=== PATIENT | male | born 1955 | race Caucasian/White ===

== ENCOUNTER 2017-06-23 10:00 | Day surgery (SDC) | payer OTHER ==
[~2017-06-23 10:00] MED LIST: Sodium Chloride 0.9% 10 ML Syringe FLUSH PRN
[2017-06-23] MEDS: Lactated Ringers 1,000 ML IV SCH (11:08)
[2017-06-23] MEDS ORDERED: Midazolam 1 MG/ML 2 ML SDV ONE ×4 (11:28→11:35)
[2017-06-23] MEDS ORDERED: Propofol 200 MG/20 ML SDV ONE ×3 (11:28→11:36)
[2017-06-23] MEDS ORDERED: fentaNYL 100 MCG/2 ML SDV ONE ×2 (11:28→11:35)
[2017-06-23] MEDS ORDERED: Lidocaine 2% 5 ML SDV ONE (11:35)
--- NOTE | 2017-06-23 12:16 | PCM.OPNOTE ---
- General Post-Op/Procedure Note Date of Surgery/Procedure: 06/23/17 Operative Procedure(s): EGD with bx. Colonoscopy Findings: Nl EGD Lipoma ; Tics Pre Op Diagnosis: Hx Bal's. FH Colon Ca Post-Op Diagnosis: Same Anesthesia Technique: Moderate Sedation Primary Surgeon: Nagi Garcia Anesthesia Provider: Christi Lo Pathology: Esoph Bx's Complications: None Condition: Good Free Text/Narrative:: Intake & Output 06/22/17 06/23/17 06/23/17 22:59 06:59 14:59 Intake Total 900 Balance 900
--- NOTE | 2017-06-23 14:19 | OR ---
Date of Procedure: 06/23/2017 PREOPERATIVE DIAGNOSES: 1. History of Bal esophagus. 2. Family history of colon cancer. POSTOPERATIVE DIAGNOSES: 1. Normal EGD. 2. Colon lipoma. 3. Sigmoid diverticulosis. PROCEDURES: 1. EGD with biopsy. 2. Colonoscopy. ANESTHESIA: IV sedation. DESCRIPTION OF PROCEDURE: The patient was brought to the procedure room, where he was placed on his left side and IV sedation administered. Oral bite block was placed and the upper endoscope advanced into the esophagus under direct vision without difficulty. Vocal cords were viewed and were normal. Scope was passed to the 3rd portion of the duodenum. Duodenum and pylorus were normal. Antrum and body of the stomach were normal. Retroflexion reveals a normal post lap Irena fundus, which is intact. Squamocolumnar junction was slightly irregular. There was possibly one small erosion present. I did take biopsies of this area in addition to all the other quadrants for surveillance of Bal esophagus. Photographs were taken. Air was removed from the stomach and the scope withdrawn. The patient tolerated this portion of the procedure well. Next, colonoscopy was performed after digital rectal exam was performed which was normal. Colonoscope was inserted and advanced to the level of the cecum without difficulty. Cecal position was confirmed by identifying the appendiceal lumen and ileocecal valve. Prep was good and surfaces were well visualized. Upon withdrawing the scope, the ascending colon was normal. There is a pedunculated lipoma present at the hepatic flexure. I had the old chart pulled and this appeared slightly larger than 7 years ago, but benign mucosal surface present. No treatment was still necessary. Photograph was taken. The remaining transverse colon was normal. Descending colon and sigmoid colon had multiple diverticula present. Rectum was normal and retroflexion was normal. Air was removed and the scope withdrawn. The patient tolerated the procedure well and returned to recovery in stable condition. Recommend repeat EGD and colonoscopy in 5 years. MODL HALEY GAINES MD /[id number]
== END 2017-06-23 13:30 | disposition home or self-care (01) ==
LOC: LL.SDS 10:00
PROVIDERS: ATTEND Surgery
DX: K22.70 Barrett's esophagus without dysplasia (principal); D17.5 Benign lipomatous neoplasm of intra-abdominal organs; K57.30 Diverticulosis of large intestine without perforation or abscess without bleeding; Z80.0 Family history of malignant neoplasm of digestive organs; Z98.890 Other specified postprocedural states
CPT/HCPCS: 43239; 45378; J2250; J2704; J3010; J7120

== ENCOUNTER 2020-01-09 08:56 | Emergency (ER) | payer OTHER ==
[2020-01-09] MEDS ORDERED: Aspirin 81 MG Tab.Chew CHEW ONE (09:10)
[2020-01-09] MEDS ORDERED: Ticagrelor 90 MG Tab PO ONE (09:10)
[2020-01-09] MEDS ORDERED: Famotidine 20 MG/2 ML SDV IVPUSH ONE (09:10)
--- NOTE | 2020-01-09 09:10 | EDM.PDOC ---
ED HPI GENERAL MEDICAL PROBLEM - General Chief Complaint: Chest Pain Stated Complaint: chest pain Time Seen by Provider: 01/09/20 09:05 Source of Information: Reports: Patient, Old Records ([facility] chart/EMR) History Limitations: Reports: No Limitations - History of Present Illness INITIAL COMMENTS - FREE TEXT/NARRATIVE: The patient drove himself to the emergency room via private automobile for evaluation of 11/30 sharp retrosternal chest pain radiating to the right chest, right shoulder and right cervical region with symptoms similar to his previous intermittent daily episodes, which have been occurring about 3 times per day during the last 10 days. Note that patient's symptoms are elicited with mild to moderate activity and associated with possible mild dyspnea, decreased exercise tolerance, and questionable diaphoresis. The patient was evaluated by his regular provider, Mehreen Koenig PA-C, at [facility], [place], operated by [facility], 2 days ago with apparent negative EKG and chest x-ray at that time. Symptoms did resolve prior to my arrival to the emergency room and prior to any treatment given in this facility. His symptoms usually last about 1 hour after onset of his symptoms with the patient taking 600 mg of Advil at 7:30 AM this morning, although his symptoms began about 8:30 AM this morning, while he was working and doing minor lifting this morning. No recent history of abdominal pain, heartburn, nausea, diarrhea, melena, gross hematochezia, or any food intolerance, including fatty foods, etc. with normal bowel movement earlier this morning. He denies any gross hematuria, colic, or other UTI symptoms. The patient also denies any recent fever, cough, wheezing, dyspnea, etc., with apparent negative COVID-19 test a week ago by his history. Onset: Today, Sudden, Gradual, Other (As above) Onset Date: 01/09/20 Onset Time: 08:30 Duration: Intermittent Location: Reports: Neck, Chest, Upper Extremity, Right, Radiates to (As above). Denies: Abdomen, Back, Pelvis, Upper Extremity, Left Quality: Reports: Same as Previous Episode, Sharp, Stabbing Severity: Severe Improves with: Reports: Rest Worsens with: Reports: Other (As above) Context: Reports: Lifting. Denies: Sick Contact, Trauma Associated Symptoms: Reports: Chest Pain, Shortness of Breath. Denies: Confu jose luis, Cough, Diaphoresis, Fever/Chills, Headaches, Loss of Appetite, Malaise, Nausea/Vomiting, Rash, Seizure, Syncope, Weakness Treatments [employer]: Reports: NSAIDS chest pain Pain Score (Numeric/FACES): 0 - Related Data Allergies Allergy/AdvReac Type Severity Reaction Status Date / Time No Known Allergies Allergy Verified 01/09/20 09:05 Home Meds: Home Meds Citalopram [Citalopram HBr] 20 mg PO DAILY 06/22/17 [History] Ibuprofen 600 mg PO TID PRN 02/24/18 [History] Indomethacin [Indocin] 50 mg PO DAILY PRN 02/24/18 [History] Tamsulosin HCl [Flomax] 1 tab PO DAILY 01/09/20 [History] busPIRone [Buspar] 1 tab PO DAILY 01/09/20 [History] Past Medical History HEENT History: Reports: Impaired Vision, Other (See Below). Denies: Allergic Rhinitis, Cataract, Glaucoma, Hard of Hearing, Macular Degeneration, Otitis Media, Retinal Detachment Other HEENT History: He wears glasses. Cardiovascular History: Reports: High Cholesterol, Other (See Below). Denies: Afib, Aneurysm, Arrhythmia, Blood Clots/VTE/DVT, CAD, Heart Failure, Heart Murmur, Hypertension, HI, PVD, Syncope Other Cardiovascular History: Dependent edema. Dyslipidemia. Respiratory History: Reports: Bronchitis, Recurrent, COPD, Pneumonia, Recurrent, Other (See Below). Denies: Asthma, Intubation, Difficult, Intubation, Previous, PE, Pneumothorax, Sleep Apnea, TB Other Respiratory History: COPD by chest x-ray with reactive airway disease secondary to bronchitis. Right middle lobe atelectasis secondary to pneumonia by CT scan on 04/07/2018 as below. Gastrointestinal History: Reports: Chronic Constipation, Fatty Liver, GERD, Hiatal Hernia, Other (See Below). Denies: Bowel Obstruction, Celiac Disease, Cholelithiasis, Chronic Diarrhea, Colon Polyp, Fecal Incontinence, Gastritis, GI Bleed, Hepatitis, Inflammatory Bowel Disease, Irritable Bowel Syndrome, Jaundice, Pancreatitis Other Gastrointestinal History: Bal's esophagus. Colonic lipoma. Genitourinary History: Reports: BPH. Denies: Acute Renal Failure, Chronic Renal Insuffiency, Renal Calculus, Retention, Urinary, STD, Urinary Incontinence, UTI, Recurrent Musculoskeletal History: Reports: Arthritis, Back Pain, Chronic, Fracture, Gout, Neck Pain, Chronic, Osteoarthritis, Other (See Below). Denies: Amputation, Fibromyalgia, Osteoporosis, RA, SLE Other Musculoskeletal History: Right elbow epicondylitis. Bilateral rib fractures in 2002 and 2004. History of gout. Bilateral biceps tendon tears requiring surgery as below. Neurological History: Reports: Headaches, Chronic, Migraines. Denies: Cerebral Aneurysms, Concussion, CVA, Head Trauma, MS, Neuropathy, Peripheral, Parkinson's, Seizure, TIA Psychiatric History: Reports: Anxiety, Depression, Suicidal Ideation, Other (See Below). 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 Endocrine/Metabolic History: Reports: Obesity/BMI 30+, Other (See Below). Denies: Diabetes, Type I, Diabetes, Type II, Diabetes Mellitus, Type 3c, Hypothyroidism, IDDM Other Endocrine/Metabolic History: Hypoalbuminemia. Hematologic History: Reports: None. Denies: Anemia, Blood Transfusion(s), Iron Deficiency Immunologic History: Reports: None. Denies: AIDS, HIV, SLE Oncologic (Cancer) History: Reports: None. Denies: Basal Cell Carcinoma, Colon, Esophageal, Hodgkin's Lymphoma, Leukemia, Lymphoma, Malignant Melanoma, Non- Hodgkin's Lymphoma, Prostate, Squamous Cell Carcinoma Dermatologic History: Reports: None. Denies: Eczema, Psoriasis - Infectious Disease History Infectious Disease History: Reports: Chicken Pox, Measles, Mumps, Rubella. Denies: C-Difficile, Meningitis, Mononucleosis, MRSA, Novel Coronavirus, Pertussis (Whooping Cough), Shingles, TB, VRE - Past Surgical History Head Surgeries/Procedures: Reports: None HEENT Surgical History: Reports: Oral Surgery, Other (See Below). Denies: Adenoidectomy, Cataract Surgery, Eye Surgery, Laser Surgery, Myringotomy w Tube(s), Naso-Sinus Surgery, Tonsillectomy Other HEENT Surgeries/Procedures: [place] teeth extraction 4 in the 1960s. Cardiovascular Surgical History: Reports: None. Denies: Varicose Respiratory Surgical History: Reports: None. Denies: Thoracentesis GI Surgical History: Reports: Colonoscopy, EGD, Irena Fundoplication, Other (See Below). Denies: Appendectomy, Cholecystectomy, Hernia, Abdominal, Hernia, Inguinal, Hernia Repair/Other, Polypectomy Other GI Surgeries/Procedures: Last EGD and colonoscopy on 06/23/17. Irena fundoplication in 2002. Male Surgical History: Reports: Circumcision, Other (See Below). Denies: TURP-Transurethral Resection of Prostate, Vasectomy Other Male Surgeries/Procedures: Circumcision as an . Endocrine Surgical History: Reports: None. Denies: Thyroid Biopsy Neurological Surgical History: Reports: None. Denies: C-Spine, Discectomy, Laminectomy, Lumbar Spine, Sacral Spine, Spinal Fusion, Thoracic Spine, Vertebroplasty Musculoskeletal Surgical History: Reports: None, Other (See Below). Denies: Arthroscopic Procedure, Carpal Tunnel, Ganglion Cyst, Joint Replacement, ORIF, Shoulder Surgery Other Musculoskeletal Surgeries/Procedures:: Left biceps tendon repair in 1996. Right biceps tendon repair in 1977. Oncologic Surgical History: Reports: None Dermatological Surgical History: Reports: None - Past Imaging History Past Imaging History: Reports: CAT Scan (CT scan of the chest with IV contrast on 04/07/2018.) Social & Family History - Family History HEENT: Reports: Macular Degeneration, Other (See Below). Denies: Glaucoma, Retinal Detachment Other HEENT Family History: Mother with macular degeneration Cardiac: Reports: CAD, HI, Stent, Other (See Below). Denies: Afib, Aneurysm, Arrhythmia, Blood Clots/VTE/DVT, Heart Failure, Heart Murmur, High Cholesterol, Hypertension, Syncope (His blood pressure no cholesterol the last time we talked about no rhythm problems aneurysms of the right) Other Cardiac Family History: Father with initial HI in his 50s with multiple PTCA/stents and eventual fatal HI and/or concomitant COPD in his 80s with history of tobacco use. Sister with PTCA/stent x2 at about age 55 with no apparent HI. Sister with pericardial effusion recurrent in nature of unknown etiology. Respiratory: Reports: COPD, Other (See Below). Denies: Asthma, PE, Pneumothorax, Sleep Apnea Other Respiratory Family Hisory: Father with COPD as above. GI: Reports: Colon Polyps, Diverticulosis, Other (See Below). Denies: Celiac Disease, Cholelithiasis, GERD, GI bleed, Inflammatory Bowel Disease, Irritable Bowel Syndrome, PUD Other GI Family History: Mother with history of colonic polyps of unknown type, diverticulosis, and colostomy requirement secondary to postoperative complications from polypectomy. : Reports: None. Denies: Renal Calculus, Renal Disease/Insufficiency OBGYN: Reports: None. Denies: Endometriosis, Recurrent Spontaneous Musculoskeletal: Reports: Arthritis, RA, Other (See Below). Denies: Gout Other Musculoskeletal Family History: Father, brother, nephew with rheumatoid arthritis. Neurological: Reports: None. Denies: Alzheimers Disease, CVA, Dementia, Migraines, MS, Neuropathy, Peripheral, Parkinson's, Seizure, TIA Psychiatric: Reports: Anxiety, Depression, Other (See Below). Denies: Abuse, Victim of, ADD, ADHD, Psych Hospitalization(s), PTSD, Suicide Attempt Other Psychiatric Family History: All family members with some sort of anxiety depression disorder with sister also having alcohol abuse and substance abuse problem Endocrine/Metabolic: Reports: None. Denies: Diabetes, Gestational, Diabetes, Type I, Diabetes, type II, Diabetes Mellitus, Type 3c, Hypothyroidism, IDDM Hematologic: Reports: None. Denies: SLE Immunologic: Reports: None. Denies: AIDS, HIV, SLE Dermatologic: Reports: None. Denies: Eczema, Psoriasis Oncologic: Reports: Colon, Other (See Below). Denies: Esophageal, Hodgkin's Lymphoma, Leukemia, Lymphoma, Non-Hodgkin's Lymphoma, Prostate, Skin Other Oncologic Family History: Father with colon cancer - Tobacco Use Tobacco Use Status *Q: Never Tobacco User Tobacco Use Within Last Twelve Months: No Used Tobacco, but Quit: No Smoking Cessation Information Provided To Patient: No Second Hand Smoke Exposure: No Second Hand Smoke Education Provided: No - Caffeine Use Caffeine Use: Reports: Soda (2 sodas per day). Denies: Coffee, Energy Drinks, Tea - Alcohol Use Alcohol Use History: No Days Per Week of Alcohol Use: 0 Number of Drinks Per Day: 0 Total Drinks Per Week: 0 Total Drinks Per Week Comment: No previous DWIs, problems with alcohol abuse, etc.. Note brief problems with alcohol after his daughter's as above. 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 ED EXAM, GENERAL - Physical Exam Exam: See Below Exam Limited By: No Limitations General Appearance: Alert, WD/WN, No Apparent Distress, Anxious (Mild to moderate) Eye Exam: Bilateral Eye: EOMI, Normal Inspection (No nystagmus), PERRL Ears: Normal External Exam, Normal Canal, Hearing Grossly Normal, Normal TMs Nose: Normal Inspection, Normal Mucosa, No Blood Throat/Mouth: Normal Inspection, Normal Lips, Normal Teeth, Normal Gums, Normal Oropharynx, Normal Voice, No Airway Compromise. No: Dysphagia, Perioral Cyanosis Head: Atraumatic, Normocephalic. No: Facial Swelling, Facial Tenderness, Sinus Tenderness Neck: Normal Inspection, Supple, Non-Tender, Full Range of Motion. No: Carotid Bruit, Lymphadenopathy (L), Lymphadenopathy (R), Thyromegaly Respiratory/Chest: No Respiratory Distress, Lungs Clear, Normal Breath Sounds, No Accessory Muscle Use, Chest Non-Tender. No: Pleural Rub, Retractions Cardiovascular: Normal Peripheral Pulses, No Edema, No Gallop, No JVD, No Murmur, No Rub, Bradycardia (Regular rhythm). No: Gallop/S3, Gallop/S4 Peripheral Pulses: 2+: Radial (L), Radial (R), Dorsalis Pedis (L), Dorsalis Pedis (R) GI/Abdominal: Normal Bowel Sounds, Soft, Non-Tender, No Organomegaly, No Distention, No Abnormal Bruit, No Mass, Pelvis Stable. No: Guarding (Male) Exam: Deferred Rectal (Males) Exam: Deferred Back Exam: Normal Inspection, Full Range of Motion. No: CVA Tenderness (L), CVA Tenderness (R), Muscle Spasm Extremities: Normal Inspection, Normal Range of Motion, Non-Tender, No Pedal Edema, Normal Capillary Refill. No: Scott's Sign Neurological: Alert, Oriented, CN II-XII Intact, Normal Cognition, Normal Gait, Normal Reflexes (Negative Babinski's), No Motor/Sensory Deficits Psychiatric: Anxious (Mild to moderate), Depressed Mood (Borderline) Skin Exam: Warm, Dry, Intact, Normal Color, No Rash. No: Diaphoretic, Wound/In cision Lymphatic: No Adenopathy #1 Interpretation EKG Date: 01/09/20 Time: 09:15 Rhythm: NSR Rate (Beats/Min): 60 [place]: Normal (Neutral cardiac access) P-Wave: Enlarged (Mild diffuse biphasic P waves) QRS: Normal (0.09 seconds) ST-T: Normal QT: Normal CA/PQ Interval: 0.14 seconds with no delta waves noted Comparison: NA - No Prior EKG (No recent EKG for comparison) EKG Interpretation Comments: 1. No acute ischemic changes 2. Left atrial enlargement 3. Borderline short CA interval #2 Interpretation EKG Date: 01/09/20 Time: 15:56 Rhythm: Other (Sinus bradycardia) Rate (Beats/Min): 59 [place]: Normal (Neutral cardiac access) P-Wave: Present QRS: Normal (0.09 seconds) ST-T: Normal (However new borderline T wave inversion in lead III) QT: Normal CA/PQ Interval: 0.14 seconds with no delta waves noted Comparison: Change From Previous EKG (As above since 9:15 AM on 01/09/2020) EKG Interpretation Comments: 1. No acute ischemic changes 2. Sinus bradycardia Course - Vital Signs Last Recorded V/S: Last Vital Signs Temp 36.6 C 01/09/20 19:54 Pulse 65 01/09/20 19:54 Resp 14 01/09/20 19:54 BP 141/107 H 01/09/20 19:54 Pulse Ox 99 01/09/20 19:54 Vital Signs - 24 hr 01/09/20 01/09/20 01/09/20 09:05 09:10 09:23 Temperature [ 36.8 C Temporal] Pulse, 57 L 66 60 Peripheral [ Pulse Oximetry] Respiratory 13 10 L 10 L Rate Blood Pressure 152/85 H 147/81 H 129/78 [Right Upper Arm] O2 Sat by Pulse 99 99 97 Oximetry 01/09/20 01/09/20 01/09/20 09:38 09:53 10:08 Temperature [ Temporal] Pulse, 62 57 L 56 L Peripheral [ Pulse Oximetry] Respiratory 14 10 L 15 Rate Blood Pressure 133/73 146/79 H 149/98 H [Right Upper Arm] O2 Sat by Pulse 98 98 98 Oximetry 01/09/20 01/09/20 01/09/20 10:45 12:00 14:00 Temperature [ 36.4 C 36.4 C Temporal] Pulse, 62 58 L 50 L Peripheral [ Pulse Oximetry] Respiratory 18 15 14 Rate Blood Pressure 194/74 H 149/86 H 157/90 H [Right Upper Arm] O2 Sat by Pulse 99 96 96 Oximetry 01/09/20 01/09/20 16:00 18:00 Temperature [ 36.7 C 36.1 C Temporal] Pulse, 59 L 61 Peripheral [ Pulse Oximetry] Respiratory 17 15 Rate Blood Pressure 155/96 H 148/95 H [Right Upper Arm] O2 Sat by Pulse 94 L 97 Oximetry Vital Signs - 24 hr 01/09/20 01/09/20 01/09/20 09:05 09:10 09:23 Temperature [ 36.8 C Temporal] Pulse, 57 L 66 60 Peripheral [ Pulse Oximetry] Respiratory 13 10 L 10 L Rate Blood Pressure 152/85 H 147/81 H 129/78 [Right Upper Arm] O2 Sat by Pulse 99 99 97 Oximetry 01/09/20 01/09/20 01/09/20 09:38 09:53 10:08 Temperature [ Temporal] Pulse, 62 57 L 56 L Peripheral [ Pulse Oximetry] Respiratory 14 10 L 15 Rate Blood Pressure 133/73 146/79 H 149/98 H [Right Upper Arm] O2 Sat by Pulse 98 98 98 Oximetry 01/09/20 01/09/20 01/09/20 10:45 12:00 14:00 Temperature [ 36.4 C 36.4 C Temporal] Pulse, 62 58 L 50 L Peripheral [ Pulse Oximetry] Respiratory 18 15 14 Rate Blood Pressure 194/74 H 149/86 H 157/90 H [Right Upper Arm] O2 Sat by Pulse 99 96 96 Oximetry 01/09/20 01/09/20 01/09/20 16:00 18:00 19:54 Temperature [ 36.7 C 36.1 C 36.6 C Temporal] Pulse, 59 L 61 65 Peripheral [ Pulse Oximetry] Respiratory 17 15 14 Rate Blood Pressure 155/96 H 148/95 H 141/107 H [Right Upper Arm] O2 Sat by Pulse 94 L 97 99 Oximetry - Orders/Labs/Meds Orders: Active Orders 24 hr Category Date Time Status Cardiac Monitoring [RC] . DIRECTED Care 01/09/20 09:10 Active EKG Documentation Completion [RC] ASDIRECTED Care 01/09/20 09:10 Active EKG Documentation Completion [RC] ASDIRECTED Care 01/09/20 15:37 Active Oxygen Therapy, ED [RC] PRN Care 01/09/20 09:10 Active Peripheral IV Care [RC] . DIRECTED Care 01/09/20 09:10 Active Peripheral IV Care [RC] . DIRECTED Care 01/09/20 10:15 Active Pulse Oximetry [RC] CONTINUOUS Care 01/09/20 09:10 Active Up With Assistance [RC] PFP Care 01/09/20 09:10 Active Vital Signs [RC] PFP Care 01/09/20 09:10 Active Nothing per Oral Now Diet [DIET] Diet 01/09/20 Breakfast Active Chest 1V Frontal [CR] Stat Exams 01/09/20 09:10 Taken Heparin Sodium/0.45% NaCl [Heparin 25,000 Units in 1/2 Med 01/09/20 10:15 Active NS 500 ML] 500 ml IV TITRATE Sodium Chloride 0.9% [Saline Flush] Med 01/09/20 09:10 Active 10 ml FLUSH ASDIRECTED PRN Sodium Chloride 0.9% [Saline Flush] Med 01/09/20 10:15 Active 10 ml FLUSH ASDIRECTED PRN Obtain Past Medical Record [OM.PC] Urgent Oth 01/09/20 09:10 Active Peripheral IV Insertion Adult [OM.PC] Routine Oth 01/09/20 10:15 Ordered Peripheral IV Insertion Adult [OM.PC] Stat Oth 01/09/20 09:10 Ordered Resuscitation Status Stat Resus Stat 01/09/20 09:10 Ordered Medication Orders Heparin Sodium/Sodium Chloride (Heparin 25,000 Units In 1/2 Ns 500 Ml) 500 mls @ 20.36 mls/hr IV TITRATE PEÑA; Protocol Last Admin: 01/09/20 10:54 Dose: 10 units/kg/hr, 20.36 mls/hr Documented by: TALITA Cosigned by: AMINATA Sodium Chloride (Saline Flush) 10 ml FLUSH ASDIRECTED PRN PRN Reason: Keep Vein Open Last Admin: 01/09/20 18:47 Dose: 10 ml Documented by: Admin: 01/09/20 11:37 Dose: 10 ml Documented by: Admin: 01/09/20 11:08 Dose: 10 ml Documented by: Admin: 01/09/20 09:59 Dose: 10 ml Documented by: Admin: 01/09/20 09:16 Dose: 10 ml Documented by: TALITA Sodium Chloride (Saline Flush) 10 ml FLUSH ASDIRECTED PRN PRN Reason: Keep Vein Open Labs: Laboratory Tests 01/09/20 01/09/20 01/09/20 Range/Units 09:14 09:14 09:14 WBC 6.0 (4.0-10.2) K/uL RBC 4.84 (4.33-5.41) M/uL Hgb 13.9 (13.1-16.8) g/dL Hct 43.6 (39.0-49.0) % MCV 90.1 (84.0-98.0) fL MCH 28.7 (28.2-33.3) pg MCHC 31.9 (31.7-36.0) g/dL RDW 15.1 H (11.2-14.1) % Plt Count 153 D (150-350) K/uL Neut % (Auto) 50.9 (45.0-80.0) % Lymph % (Auto) 36.0 (10.0-50.0) % Mckenzie % (Auto) 9.9 (2.0-14.0) % Eos % (Auto) 2.7 (0.0-5.0) % Baso % (Auto) 0.5 (0.0-2.0) % Neut # (Auto) 3.03 (1.40-7.00) K/uL Lymph # (Auto) 2.14 (0.50-3.50) K/uL Mckenzie # (Auto) 0.59 (0.00-1.00) K/uL Eos # (Auto) 0.16 (0.00-0.50) K/uL Baso # (Auto) 0.03 (0.00-0.20) K/uL PT 9.9 (9.5-12.0) SEC INR 1.0 APTT 24.1 L (24.5-32.8) SEC D-Dimer, Quantitative 101 (0-400) ng/mL Sodium (136-145) mmol/L Potassium (3.5-5.1) mmol/L Chloride (98-107) mmol/L Carbon Dioxide (21.0-32.0) mmol/L BUN (7-18) mg/dL Creatinine (0.51-1.17) mg/dL Est Cr Clr Drug Dosing Estimated GFR (MDRD) mL/min Glucose (74-106) mg/dL Lactic Acid (0.4-2.0) mmol/L Uric Acid (2.6-7.2) mg/dL Calcium (8.5-10.1) mg/dL Magnesium (1.8-2.4) mg/dL Total Bilirubin (0.2-1.0) mg/dL AST (15-37) U/L ALT (12-78) U/L Alkaline Phosphatase (46-116) IU/L Creatine Kinase (26-308) U/L Creatine Kinase Index (0.0-2.5) % CK-MB (CK-2) (0.00-3.60) ng/mL Troponin I (0.000-0.056) ng/mL NT-Pro-B Natriuret Pep (0-125) pg/mL Total Protein (6.4-8.2) g/dL Albumin (3.4-5.0) g/dL TSH, Ultra Sensitive (0.358-3.740) mIU/mL 01/09/20 01/09/20 01/09/20 Range/Units 09:14 09:14 16:00 WBC (4.0-10.2) K/uL RBC (4.33-5.41) M/uL Hgb (13.1-16.8) g/dL Hct (39.0-49.0) % MCV (84.0-98.0) fL MCH (28.2-33.3) pg MCHC (31.7-36.0) g/dL RDW (11.2-14.1) % Plt Count (150-350) K/uL Neut % (Auto) (45.0-80.0) % Lymph % (Auto) (10.0-50.0) % Mck[place] % (Auto) (2.0-14.0) % Eos % (Auto) (0.0-5.0) % Baso % (Auto) (0.0-2.0) % Neut # (Auto) (1.40-7.00) K/uL Lymph # (Auto) (0.50-3.50) K/uL Mck[place] # (Auto) (0.00-1.00) K/uL Eos # (Auto) (0.00-0.50) K/uL Baso # (Auto) (0.00-0.20) K/uL PT (9.5-12.0) SEC INR APTT (24.5-32.8) SEC D-Dimer, Quantitative (0-400) ng/mL Sodium 140 (136-145) mmol/L Potassium 3.6 (3.5-5.1) mmol/L Chloride 104 (98-107) mmol/L Carbon Dioxide 25.5 (21.0-32.0) mmol/L BUN 11 (7-18) mg/dL Creatinine 0.86 (0.51-1.17) mg/dL Est Cr Clr Drug Dosing TNP Estimated GFR (MDRD) > 60 mL/min Glucose 139 H (74-106) mg/dL Lactic Acid 2.6 H (0.4-2.0) mmol/L Uric Acid 7.2 (2.6-7.2) mg/dL Calcium 8.7 (8.5-10.1) mg/dL Magnesium 1.6 L (1.8-2.4) mg/dL Total Bilirubin 0.3 (0.2-1.0) mg/dL AST 21 (15-37) U/L ALT 31 (12-78) U/L Alkaline Phosphatase 65 (46-116) IU/L Creatine Kinase 95 101 (26-308) U/L Creatine Kinase Index 2.5 3.3 H (0.0-2.5) % CK-MB (CK-2) 2.40 3.30 (0.00-3.60) ng/mL Troponin I 0.149 H* 0.426 H* (0.000-0.056) ng/mL NT-Pro-B Natriuret Pep 184 H (0-125) pg/mL Total Protein 6.9 (6.4-8.2) g/dL Albumin 3.5 (3.4-5.0) g/dL TSH, Ultra Sensitive 0.868 (0.358-3.740) mIU/mL 01/09/20 01/09/20 01/09/20 Range/Units 16:00 17:35 17:35 WBC (4.0-10.2) K/uL RBC (4.33-5.41) M/uL Hgb (13.1-16.8) g/dL Hct (39.0-49.0) % MCV (84.0-98.0) fL MCH (28.2-33.3) pg MCHC (31.7-36.0) g/dL RDW (11.2-14.1) % Plt Count (150-350) K/uL Neut % (Auto) (45.0-80.0) % Lymph % (Auto) (10.0-50.0) % [place] % (Auto) (2.0-14.0) % Eos % (Auto) (0.0-5.0) % Baso % (Auto) (0.0-2.0) % Neut # (Auto) (1.40-7.00) K/uL Lymph # (Auto) (0.50-3.50) K/uL [place] # (Auto) (0.00-1.00) K/uL Eos # (Auto) (0.00-0.50) K/uL Baso # (Auto) (0.00-0.20) K/uL PT 10.1 (9.5-12.0) SEC INR 1.0 APTT 33.8 H (24.5-32.8) SEC D-Dimer, Quantitative (0-400) ng/mL Sodium (136-145) mmol/L Potassium (3.5-5.1) mmol/L Chloride (98-107) mmol/L Carbon Dioxide (21.0-32.0) mmol/L BUN (7-18) mg/dL Creatinine (0.51-1.17) mg/dL Est Cr Clr Drug Dosing Estimated GFR (MDRD) mL/min Glucose (74-106) mg/dL Lactic Acid 1.7 (0.4-2.0) mmol/L Uric Acid (2.6-7.2) mg/dL Calcium (8.5-10.1) mg/dL Magnesium (1.8-2.4) mg/dL Total Bilirubin (0.2-1.0) mg/dL AST (15-37) U/L ALT (12-78) U/L Alkaline Phosphatase (46-116) IU/L Creatine Kinase (26-308) U/L Creatine Kinase Index (0.0-2.5) % CK-MB (CK-2) (0.00-3.60) ng/mL Troponin I (0.000-0.056) ng/mL NT-Pro-B Natriuret Pep (0-125) pg/mL Total Protein (6.4-8.2) g/dL Albumin (3.4-5.0) g/dL TSH, Ultra Sensitive (0.358-3.740) mIU/mL Meds: Medications Generic Name Dose Route Start Last Admin Trade Name Freq PRN Reason Stop Dose Admin Heparin Sodium/Sodium Chloride 500 mls @ 20.36 mls/hr 01/09/20 10:15 01/09/20 10:54 Heparin 25,000 Units In 02/22 Ns 500 Ml IV 10 units/kg/hr TITRATE PEÑA 20.36 mls/hr Administration Protocol 10 UNITS/KG/HR Sodium Chloride 10 ml 01/09/20 09:10 01/09/20 18:47 Saline Flush FLUSH 10 ml ASDIRECTED PRN Administration Keep Vein Open Sodium Chloride 10 ml 01/09/20 10:15 Saline Flush FLUSH ASDIRECTED PRN Keep Vein Open Discontinued Medications Generic Name Dose Route Start Last Admin Trade Name Freq PRN Reason Stop Dose Admin Aspirin 324 mg 01/09/20 09:10 01/09/20 09:14 Aspirin CHEW 01/09/20 09:11 324 mg ONETIME ONE Administration Famotidine 40 mg 01/09/20 09:10 01/09/20 09:16 Pepcid IVPUSH 01/09/20 09:11 40 mg ONETIME ONE Administration Heparin Sodium (Porcine) 4,000 units 01/09/20 10:13 01/09/20 10:19 Heparin Sodium IVPUSH 01/09/20 10:14 4,000 units ONETIME ONE Administration Heparin Sodium (Porcine) 2,000 units 01/09/20 18:40 01/09/20 18:47 Heparin Sodium IVPUSH 01/09/20 18:41 2,000 units .BOLUS ONE Administration Lactated Ringer's 1,000 mls @ 999 mls/hr 01/09/20 09:47 01/09/20 09:59 Ringers, Lactated IV 01/09/20 10:47 999 mls/hr .BOLUS ONE Administration Magnesium Sulfate 4 gm/ Premix 100 mls @ 50 mls/hr 01/09/20 11:28 01/09/20 11:37 IV 01/09/20 13:27 200 mls/hr ONETIME ONE Administration Ticagrelor 180 mg 01/09/20 09:10 01/09/20 09:16 Brilinta PO 01/09/20 09:11 180 mg ONETIME ONE Administration - Radiology Interpretation Free Text/Narrative:: 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 Chest x-ray, portable, shows mild pulmonary obstructive changes with no cardiomegaly, CHF, pulmonary infiltrates, pneumothorax, etc. Departure - Departure Time of Disposition: 20:25 Disposition: DC/Tfer to Acute Hospital 02 Reason for Transfer *Q: Other (Cardiology consultation) Condition: Good, Fair Clinical Impression: Peptic reflux disease, Dyslipidemia, Hypomagnesemia, Mixed anxiety depressive disorder, Elevated lactic acid level, Elevated blood pressure reading COPD (chronic obstructive pulmonary disease) Qualifiers: COPD type: emphysema Emphysema type: panlobular Qualified Code(s): J43.1 - Panlobular emphysema Osteoarthritis Qualifiers: Osteoarthritis location: multiple joints Osteoarthritis type: primary Qualified Code(s): M89.49 - Other hypertrophic osteoarthropathy, multiple sites Acute myocardial infarction Qualifiers: Myocardial infarction type: non-ST elevation myocardial infarction Qualified Code(s): I21.4 - Non-ST elevation (NSTEMI) myocardial infarction Referrals: Mehreen Koenig PA [Primary Care Provider] - Forms: ED Department Discharge, Interfacility Transfer ARTIS Sepsis Event Note (ED) - Evaluation Sepsis Screening Result: No Definite Risk - Focused Exam Vital Signs: Vital Signs Temp Pulse Resp BP Pulse Ox 01/09/20 19:54 36.6 C 65 14 141/107 H 99 01/09/20 18:00 36.1 C 61 15 148/95 H 97 01/09/20 16:00 36.7 C 59 L 17 155/96 H 94 L 01/09/20 14:00 36.4 C 50 L 14 157/90 H 96 01/09/20 12:00 36.4 C 58 L 15 149/86 H 96 01/09/20 10:45 62 18 194/74 H 99 01/09/20 10:08 56 L 15 149/98 H 98 01/09/20 09:53 57 L 10 L 146/79 H 98 01/09/20 09:38 62 14 133/73 98 01/09/20 09:23 60 10 L 129/78 97 01/09/20 09:10 66 10 L 147/81 H 99 01/09/20 09:05 36.8 C 57 L 13 152/85 H 99 - Problem List & Annotations (1) Acute myocardial infarction SNOMED Code(s): 97862468 Code(s): I21.9 - ACUTE MYOCARDIAL INFARCTION, UNSPECIFIED Status: Acute Priority: High Current Visit: Yes Onset Date: 01/09/20 Annotation/Comment:: Chest pain protocol initiated medially upon patient's arrival to the emergency room. Note positive troponin as above with mild sinus bradycardia but no significant EKG changes. IV sodium heparin was initiated per non-STEMI protocol immediately upon receiving the above test results. Note that follow-up PTT did show a suboptimal therapy with additional 2000 units IV sodium heparin bolus given and his infusion increased to 14 units/kg/h. Recommend repeat PTT shortly after arrival of the patient to the accepting facility. Telephone consultation initially at 10:[address] Frederick, the ER physician at [facility], who did accept the patient for further treatment and evaluation, with no further treatment recommendations given. Unfortunately there was not a bed available in that facility at that time, however they would be able to accept the patient later this afternoon. Long-term emergency room care required with continuation of IV heparin therapy as above. Note additional telephone consultation at 10:25 AM with [facility], with no beds available in that facility until later this evening. The patient did take his morning medications. Multiple subsequent telephone consultations with [facility] with last consultation at 5:25 PM with that facility now stating they do not have a bed available today. Subsequent telephone consultation at 5:[address] Lo, hospitalist and ER physician at [facility] in [place], who does accept the patient for further treatment and evaluation, with no further treatment recommendations given. Secondary to ambulance availability some delay in patient's transfer without sequelae. Ambulance transfer with photoengraving sketch maker accompaniment and IV heparin therapy continued in route. Vital signs and physical exam were stable at time of ambulance transfer with photoengraving sketch maker accompaniment. No chest pain, etc. at time of transfer. In spite of progressive troponin I and now mildly positive CK index serial EKGs did not show any evidence of significant acute ischemia. Qualifiers: Myocardial infarction type: non-ST elevation myocardial infarction Qualifie d Code(s): I21.4 - Non-ST elevation (NSTEMI) myocardial infarction (2) Elevated lactic acid level SNOMED Code(s): 8921348 Code(s): R79.89 - OTHER SPECIFIED ABNORMAL FINDINGS OF BLOOD CHEMISTRY Status: Acute Priority: High Current Visit: Yes Onset Date: 01/09/20 Annotation/Comment:: Mild lactic acid level with no fever, leukocytosis, or evidence of infection, sepsis, etc. 1 L of lactated Ringer's was initiated immediately in the emergency room with repeat lactic acid level prior to patient transfer. Note mild initial BNP elevation with no significant clinical evidence of CHF. IV antibiotic therapy not indicated. Follow-up lactic acid level later this afternoon as per standard sepsis protocol/order set was normal. (3) COPD (chronic obstructive pulmonary disease) SNOMED Code(s): 93512670 Code(s): J44.9 - CHRONIC OBSTRUCTIVE PULMONARY DISEASE, UNSPECIFIED Status: Acute Priority: High Current Visit: Yes Annotation/Comment:: COPD by chest x-ray with no recent fever or bronchitic type symptoms. Note recent negative COVID-19 evaluation about 1 week ago by his history. Patient does have a previous history of right middle lobe atelectasis in March 2018 likely secondary to his previous pneumonia with recommended CT scan at that time. Consider repeat CT scan of the chest with IV contrast depending on his clinical course. Qualifiers: COPD type: emphysema Emphysema type: panlobular Qualified Code(s): J43.1 - Panlobular emphysema (4) Hypomagnesemia SNOMED Code(s): 802523976 Code(s): E83.42 - HYPOMAGNESEMIA Status: Acute Priority: Medium Current Visit: Yes Onset Date: 02/24/18 Annotation/Comment:: Persistent hypomagnesemia with patient not compliant with his previous oral magnesium supplementation. IV magnesium sulfate 4 g given in the emergency room after completion of his lactated Ringer's IV bolus. (5) Mixed anxiety depressive disorder SNOMED Code(s): 619292794 Code(s): F41.8 - OTHER SPECIFIED ANXIETY DISORDERS Status: Acute Priority: High Current Visit: Yes Annotation/Comment:: Moderate control based on today's evaluation with continued grief reaction secondary to his daughter's unfortunate from an MVA about 22 years ago. Emotional support was provided.. Consider medication adjustment by provider and continue to observe closely on an outpatient basis. (6) Dyslipidemia SNOMED Code(s): 594225146 Code(s): E78.5 - HYPERLIPIDEMIA, UNSPECIFIED Status: Chronic Priority: Medium Current Visit: Yes Annotation/Comment:: Weight loss in moderation advisable. Continued close follow-up by his regular providers. (7) Osteoarthritis SNOMED Code(s): 384227817 Code(s): M19.90 - UNSPECIFIED OSTEOARTHRITIS, UNSPECIFIED SITE Status: Chronic Priority: Medium Current Visit: Yes Annotation/Comment:: Stable by history with history of hyperuricemia, however no recent gout attacks. Patient is not on allopurinol, etc. Qualifiers: Osteoarthritis location: multiple joints Osteoarthritis type: primary Qualified Code(s): M89.49 - Other hypertrophic osteoarthropathy, multiple sites (8) Peptic reflux disease SNOMED Code(s): 306379698 Code(s): K21.9 - GASTRO-ESOPHAGEAL REFLUX DISEASE WITHOUT ESOPHAGITIS Status: Chronic Priority: Medium Current Visit: Yes Annotation/Comment:: High-dose IV Pepcid was given as GI prophylaxis in the emergency room. Note history of Bal's esophagitis. Observe for now. (9) Elevated blood pressure reading SNOMED Code(s): 01374756 Code(s): R03.0 - ELEVATED BLOOD-PRESSURE READING, W/O DIAGNOSIS OF HTN Status: Acute Priority: High Current Visit: Yes Onset Date: 01/09/20 Annotation/Comment:: Elevated blood pressure readings in the emergency room, although improved after IV magnesium sulfate was given as above. No previous history of hypertension or medical therapy. Continue to observe closely by accepting and regular providers. - Problem List Review Problem List Initiated/Reviewed/Updated: Yes - My Orders Last 24 Hours: My Active Orders 01/09/20 Breakfast Nothing per Oral Now Diet [DIET] 01/09/20 09:10 Cardiac Monitoring [RC] . DIRECTED EKG Documentation Completion [RC] ASDIRECTED Oxygen Therapy, ED [RC] PRN Peripheral IV Care [RC] . DIRECTED Pulse Oximetry [RC] CONTINUOUS Up With Assistance [RC] PFP Vital Signs [RC] PFP Chest 1V Frontal [CR] Stat Sodium Chloride 0.9% [Saline Flush] 10 ml FLUSH ASDIRECTED PRN Obtain Past Medical Record [OM.PC] Urgent Peripheral IV Insertion Adult [OM.PC] Stat Resuscitation Status Stat 01/09/20 10:15 Peripheral IV Care [RC] . DIRECTED Heparin Sodium/0.45% NaCl [Heparin 25,000 Units in 1/2 NS 500 ML] 500 ml IV TITRATE Sodium Chloride 0.9% [Saline Flush] 10 ml FLUSH ASDIRECTED PRN Peripheral IV Insertion Adult [OM.PC] Routine 01/09/20 15:37 EKG Documentation Completion [RC] ASDIRECTED - Assessment/Plan Last 24 Hours: My Active Orders 01/09/20 Breakfast Nothing per Oral Now Diet [DIET] 01/09/20 09:10 Cardiac Monitoring [RC] . DIRECTED EKG Documentation Completion [RC] ASDIRECTED Oxygen Therapy, ED [RC] PRN Peripheral IV Care [RC] . DIRECTED Pulse Oximetry [RC] CONTINUOUS Up With Assistance [RC] PFP Vital Signs [RC] PFP Chest 1V Frontal [CR] Stat Sodium Chloride 0.9% [Saline Flush] 10 ml FLUSH ASDIRECTED PRN Obtain Past Medical Record [OM.PC] Urgent Peripheral IV Insertion Adult [OM.PC] Stat Resuscitation Status Stat 01/09/20 10:15 Peripheral IV Care [RC] . DIRECTED Heparin Sodium/0.45% NaCl [Heparin 25,000 Units in 1/2 NS 500 ML] 500 ml IV TITRATE Sodium Chloride 0.9% [Saline Flush] 10 ml FLUSH ASDIRECTED PRN Peripheral IV Insertion Adult [OM.PC] Routine 01/09/20 15:37 EKG Documentation Completion [RC] ASDIRECTED Assessment:: As above Plan: As above. Extensive precautions were given to the patient and his , who are in agreement with the treatment plan. Ambulance transfer to [facility] in [place] with photoengraving sketch maker accompaniment as above.
[2020-01-09] MEDS: Sodium Chloride 0.9% 10 ML Syringe FLUSH PRN ×5 (09:16→18:47)
[2020-01-09 09:41] LABS: PTT,PARTIAL THROMBOPLSTIN TIME 24.1 SEC (24.5-32.8)
[2020-01-09] MEDS ORDERED: Lactated Ringers 1,000 ML IV ONE (09:47)
[2020-01-09 10:08] LABS: CHLORIDE,CL 104 mmol/L (98-107); SODIUM,NA 140 mmol/L (136-145)
[2020-01-09] MEDS ORDERED: Heparin Sodium 5,000 Units/ML Vial IVPUSH ONE ×2 (10:13→18:40)
[2020-01-09] MEDS ORDERED: Sodium Chloride 0.9% 10 ML Syringe FLUSH PRN (10:15)
[2020-01-09] MEDS ORDERED: Heparin Sodium/0.45% NaCl 500 ML IV SCH (10:15)
[2020-01-09] MEDS ORDERED: Magnesium Sulfate/Water 4 GM in Premix Bag 1 BAG IV ONE (11:28)
--- OUTSIDE RECORDS SUMMARY | 2020-01-11 12:12 | XMSREPORT ---
:1955 Author Organization [facility] s Address [facility] [place] [address] Care Team Providers Name Role Phone Provider, Attributed RESOURCE Attributed Provider Unavailab daphney Mcconnell MD Primary Care Provider ANTONIO Koenig Primary Care Provider Reason for Visit Reason Comments Auth/Cert Status Reason Specialty Diagnoses / Procedures Referred By Gilma leon Referred To Contact Encounter Details Date Type Department Care Team Description 01/09/2020 - Hospital Encounter [facility] Dionte Lo MD [address] [place] [address] Non-ST elevation [place] 01/[facility] [address] [place] [address] (NSTEMI) ([facility]) [address] [place] [address] Allergies No Known Allergiesdocumented as of this encounter (statuses as of 01/11/2020) Medications Medication Sig Dispensed Refills Start Date End Date Status citalopram (CELEXA) Take 40 mg by 0 Active 40 mg tablet mouth 1 time per day. acetaminophen Take 1,300 mg 0 Ac tive (TYLENOL ARTHRITIS) by mouth as 650 mg tablet needed. tamsulosin (FLOMAX) Take 1 30 capsule 12 03/28/2018 Active 0.4 mg capsule (0.4 capsuleIndications: mg) by mouth Enlarged prostate 1 time per with urinary day obstruction, Lower urinary tract symptoms (LUTS), Screening for prostate cancer busPIRone (BUSPAR) Take 5 mg by 0 01/01/2020 Active 5 mg tablet mouth 1 time per day aspirin 81 mg Take 1 tablet 30 tablet 12 01/11/2020 02/10/20 A ctive chewable (81 mg) by 20 tabletIndications: mouth 1 time Non-ST elevation [place] per day (NSTEMI) ([facility]) atorvaSTATin Take 1 tablet 90 tablet 4 01/11/2020 01/16/20 Ac tive (LIPITOR) 40 mg (40 mg) by 21 tabletIndications: mouth every Non-ST elevation [place] night at (NSTEMI) ([facility]) bedtime metoprolol Take 1 tablet 90 tablet 4 01/11/2020 01/16/20 Acti ve succinate (TOPROL (25 mg) by 21 XL) 25 mg SR tablet mouth 1 time (24 hr)Indications: per day Non-ST elevation [place] (NSTEMI) ([facility]) nitroglycerin Dissolve 1 30 tablet 0 01/11/2020 01/16/20 Acti ve (NITROSTAT) 0.4 mg tablet (0.4 21 sublingual mg) under the tabletIndications: tongue Every Non-ST elevation [place] 5 minutes as (NSTEMI) ([facility]) needed for chest pain May repeat every 5 minutes for a total of 3 doses. ticagrelor Take 1 tablet 60 tablet 11 01/11/2020 Acti ve (BRILINTA) 90 mg (90 mg) by tabletIndications: mouth 2 times Non-ST elevation [place] a day (NSTEMI) ([facility]) Cyanocobalamin Take 1 tablet 0 01/09/20 D iscontinued (VITAMIN B-12 PO) by mouth 1 20 ( die drawing checker time per day. error) colchicine 0.6 mg Take 0.6 mg 0 01/09/20 Discontinued tablet by mouth 1 20 (Data ent ry time per day error) aspirin 81 mg Take 1 tablet 0 05/28/2015 01/11/20 D iscontinued chewable tablet (81 mg total) 20 (Reorder) by mouth 1 time per day indomethacin Take 1 90 capsule 0 12/15/2018 01/11/20 Disco ntinued (INDOCIN) 50 mg capsule (50 20 (S top Taking at capsuleIndications: mg) by mouth Discharge) Acute gout, 3 times a day unspecified cause, with meals unspecified site documented as of this encounter (statuses as of 01/11/2020) Active Problems Problem Noted Date Non-ST elevation [place] (NSTEMI) 01/10/2020 Lower urinary tract symptoms (LUTS) 03/28/2018 Enlarged prostate with urinary obstruction 03/28/2018 Screening for prostate cancer 03/28/2018 Status post arthroscopic knee surgery 08/13/2015 Depression 07/20/2013 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 Overview: Borderline and Narcissistic traits Gout 06/28/2013 documented as of this encounter (statuses as of 01/11/2020) Resolved Problems Problem Noted Date Resolved Date Meniscus tear 05/14/2015 08/13/2015 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 Sex Assigned at Date Recorded Not on file documented as of this encounter Last Filed Vital Signs Vital Sign Reading Time Taken Comments Blood Pressure 132/86 01/11/2020 7:[address] MAGISTRATE Pulse 55 01/11/2020 7:[address] MAGISTRATE Temperature 36.4 C (97.6 F) 01/11/2020 7:[address] MAGISTRATE Respiratory Rate 16 01/11/2020 7:[address] MAGISTRATE Oxygen Saturation 98% 01/11/2020 7:[address] MAGISTRATE Inhaled Oxygen Concentration - - Weight 97.9 kg (215 lb 12.8 oz) 01/10/2020 7:[address] MAGISTRATE Height 175.3 cm (5' 9") 01/09/2020 9:[address] MAGISTRATE Body Mass Index 31.87 01/09/2020 9:[address] MAGISTRATE documented in this encounter Functional Status Functional Status Response Date of Assessment Is the person deaf or does he/she have serious difficulty No 05/27/2015 hearing? Is this person blind or does he/she have difficulty No 05/27/2015 seeing even when wearing glasses? Do you have difficulty with walking, balance, climbing No 01/10/2020 stairs, or had a fall in the last 3 months? Because of a physical, mental, or emotional condition; No 05/27/2015 does this person have difficulty doing errands alone such as visiting a doctor's office or shopping? Cognitive Status Response Date of Assessment Because of a physical, mental, or emotional condition; No 05/27/2015 does this person have serious difficulty concentrating, remembering, or making decisions? documented as of this encounter Discharge Summaries Not on filedocumented in this encounter Discharge Instructions AttachmentsThe following attachments cannot be sent through Care Everywhere. Angina, Discharge Instructions for (Malian)documented in this encounter Medications at Time of Discharge Medication Sig Dispensed Refills Start Date End Date aspirin 81 mg chewable Take 1 tablet (81 30 tablet 12 201902/10/2020 tabletIndications: Non-ST mg) by mouth 1 time elevation [place] (NSTEMI) per day ([facility]) atorvaSTATin (LIPITOR) 40 Take 1 tablet (40 90 tablet 4 01/15/2021 mg tabletIndications: mg) by mouth every Non-ST elevation [place] night at bedtime (NSTEMI) ([facility]) metoprolol succinate Take 1 tablet (25 90 tablet 4 01/11/20 20 01/15/2021 (TOPROL XL) 25 mg SR mg) by mouth 1 time tablet (24 per day hr)Indications: Non-ST elevation [place] (NSTEMI) ([facility]) nitroglycerin (NITROSTAT) Dissolve 1 tablet 30 tablet 0 01/15/2021 0.4 mg sublingual (0.4 mg) under the tabletIndications: Non-ST tongue Every 5 elevation [place] (NSTEMI) minutes as needed ([facility]) for chest pain May repeat every 5 minutes for a total of 3 doses. ticagrelor (BRILINTA) 90 Take 1 tablet (90 60 tablet 11 12/23 mg tabletIndications: mg) by mouth 2 Non-ST elevation [place] times a day (NSTEMI) ([facility]) tamsulosin (FLOMAX) 0.4 Take 1 capsule (0.4 30 capsule 12 06/2018 mg capsuleIndications: mg) by mouth 1 time Enlarged prostate with per day urinary obstruction, Lower urinary tract symptoms (LUTS), Screening for prostate cancer acetaminophen (TYLENOL Take 1,300 mg by 0 ARTHRITIS) 650 mg tablet mouth as needed. citalopram (CELEXA) 40 mg Take 40 mg by mouth 0 tablet 1 time per day. busPIRone (BUSPAR) 5 mg Take 5 mg by mouth 0 12/22 tablet 1 time per day documented as of this encounter Progress Notes Elfego Mcfadden MD - 01/10/2020 10:45 AM CST Hospital Progress Note Erik Snider is a 64yr old male admitted on 01/09/2020. Assessment / Plan Active Problems: Non-ST elevation [place] (NSTEMI) ([facility]) Resolved Problems: * No resolved hospital problems. * Erik is a 64-year-old male with no known CAD, past medical history of obesity with a BMI 32 dyslipidemia family history of heart disease, anxiety depression GERD who came in as a direct admit for concerns for chest pain and elevated troponin. He has been having off-and-on chest pain for almost a week, pain was associated with shortness of breath diaphoresis, for which he went to [facility]- EKG showed no acute ST changes, chest x-ray was negative for any acute process, troponin was0.1 and 0.4. He was given aspirin 324, Brilinta 180 mg, 40 mg IV Pepcid, 4 g magnesium, heparin bolus and heparin drip and was transferred here for further management. #NSTEMI likely type I Risk factorsobesity, family history of CAD, dyslipidemia At [facility] he already loaded with aspirin 324 and Brilinta 180 mg, heparin bolus at outside hospital Continue heparin drip Start aspirin 81 mg Continue Lipitor and beta-blockers as tolerated Telemetry EKG repeated no acute ST changes Echocardiogram pending Troponins trended down. Lipid panel reviewed with LDL 137 and A1c at 5.5 Cardiology consulted : Plan for angiogram today. #Anxiety and depression Resume home dose BuSpar and Celexa #BPH resume Flomax #Obesity CODE STATUS full code DVT prophylaxis on heparin drip HPI / History / ROS HPI - Cardiology evaluated him and the plan for angiogram, continued on heparin drip, echo still pending, no active chest pain right now, vitals are stable, discussed the plan of care with the patient and his in the room. Review of Systems Constitutional: Positive for fatigue. Negative for activity change. Respiratory: Negative for cough and shortness of breath. Cardiovascular: Positive for chest pain. Negative for leg swelling. Gastrointestinal: Negative for abdominal pain and constipation. Genitourinary: Negative. Musculoskeletal: Negative. Skin: Negative. Neurological: Negative. Hematological: Negative. Psychiatric/Behavioral: Negative. Physical / Results Current Vital Signs Temp: 97.9 F (36.6 C) BP: 139/86 Weight: 97.9 kg (215 lb 12.8 oz) SpO2: 97 % Resp: 16 Pulse: 59 Current BMI (>50 = increased risk): (!) 32.15 O2 Device: Room Air Pain Ratin Physical Exam Constitutional: Appearance: He is not ill-appearing. HENT: Nose: No congestion. Eyes: General: No scleral icterus. Neck: Musculoskeletal: No neck rigidity. Cardiovascular: Rate and Rhythm: Normal rate and regular rhythm. Heart sounds: No murmur. Pulmonary: Effort: No respiratory distress. Breath sounds: Normal breath sounds. No wheezing. Abdominal: General: There is no distension. Tenderness: There is no abdominal tenderness. Musculoskeletal: General: No swelling. Skin: Coloration: Skin is not jaundiced. Neurological: General: No focal deficit present. Mental Status: He is oriented to person, place, and time. Mental status is at baseline. Motor: No weakness. Psychiatric: Mood and Affect: Mood normal. T COURT MAGISTRATE documented in this encounter H&P Notes Chani Nicholson MD - 01/09/2020 10:07 PM CST Hospital Admission History and Physical Assessment / Plan Erik is a 64-year-old male with no known CAD, past medical history of obesity with a BMI 32 dyslipidemia family history of heart disease, anxiety depression GERD who came in as a direct admit from medicine floor concerns for chest pain and elevated troponin. He has been having off-and-on chest pain for almost a week, pain was worse today from 8 AM to 11 AM,associated with shortness of breath diaphoresis, for which he went to [facility]- EKG showed no acute ST changes, chest x-ray was negative for any acute process, troponin was0.1 and 0.4. He was given aspirin 324, Brilinta 180 mg, 40 mg IV Pepcid, 4 g magnesium, heparin bolus and heparin drip and was transferred here for further management. #NSTEMI Risk factorsobesity, family history of CAD, dyslipidemia Concurrent aspirin 324 and Brilinta 180 mg, heparin bolus at outside hospital Resume heparin drip Start aspirin 81 mg from tomorrow Add Lipitor and low-dose beta-blockers as tolerated Telemetry EKG repeated no acute ST changes Echocardiogram Trend troponins Check lipid panel and A1c Cardiology consult requested #Anxiety and depression Resume home dose BuSpar and Celexa #BPH resume Flomax #Obesity needs lifestyle modification CODE STATUS full code DVT prophylaxis not indicated as he is on heparin drip HPI / History / ROS HPI Erik is a 64-year-old male with no known CAD, past medical history of obesity with a BMI 32 dyslipidemia family history of heart disease, anxiety depression GERD who came in as a direct admit from medicine floor concerns for chest pain and elevated troponin. He has been having off-and-on chest pain for almost a week, pain was worse today from 8 AM to 11 AM,associated with shortness of breath diaphoresis, for which he went to [facility]- EKG showed no acute ST changes, chest x-ray was negative for any acute process, troponin was0.1 and 0.4. He was given aspirin 324, Brilinta 180 mg, 40 mg IV Pepcid, 4 g magnesium, heparin bolus and heparin drip and was transferred here for further management. Erik states that he started having off-and-on chest pain for about a week worse with exertion, associated with nausea diaphoresis and shortness of breath Pain was mainly in the retrosternal area towards the joint and was going to the right neck and jaw and right arm very little of the left side of the chest Worst pain was this morning at 8 so he reported to the outside hospital ER He stated that he has history of GERD and has been going through a lot of stress lately Lives at home with his Denies any known CAD no history of diabetes His dad and sister has cardiac stents Denies any smoking history Recently was tested for Covid which was negative He has had stress test several years ago which was negative per patient no records available in epic History Patient Active Problem List Diagnosis Gout Depression Cluster B personality disorder (HCC) Status post arthroscopic knee surgery Lower urinary tract symptoms (LUTS) Enlarged prostate with urinary obstruction Screening for prostate cancer Prior to Admission Medications Prescriptions Last Dose Informant Patient Reported? Taking? acetaminophen (TYLENOL ARTHRITIS) 650 mg tablet 01/09/2020 at Unknown time Yes Yes Sig: Take 1,300 mg by mouth as needed. aspirin 81 mg chewable tablet 01/09/2020 at am No Yes Sig: Take 1 tablet (81 mg total) by mouth 1 time per day busPIRone (BUSPAR) 5 mg tablet Yes No Sig: Take 5 mg by mouth 1 time per day citalopram (CELEXA) 40 mg tablet 01/09/2020 at am Yes Yes Sig: Take 40 mg by mouth 1 time per day. indomethacin (INDOCIN) 50 mg capsule 01/09/2020 at am No Yes Sig: Take 1 capsule (50 mg) by mouth 3 times a day with meals Patient taking differently: Take 50 mg by mouth 1 time per day tamsulosin (FLOMAX) 0.4 mg capsule 01/09/2020 at am No Yes Sig: Take 1 capsule (0.4 mg) by mouth 1 time per day Facility-Administered Medications: None No Known Allergies Past Medical History: Diagnosis Date Depression GERD (gastroesophageal reflux disease) Hyperlipidemia Past Surgical History: Procedure Laterality Date ABDOMINAL SURGERY ARTHROSCOPY Left 05/28/2015 Procedure: LEFT KNEE ARTHROSCOPY, PARTIAL MEDIAL MENISECTOMY;; Surgeon: Chung Lindquist MD COLONOSCOPY ELBOW SURGERY RAIN FUNDOPLICATION 2009 TEETH EXTRACTION Family History Problem Relation Age of Onset Heart Disease Mother Hypertension Mother Osteoarthritis Mother Alcohol/Drug Father alcoholic Arthritis Brother Mental Illness Brother "self esteem issues" Mental Illness Sister "self esteem issues" Mental Illness Sister "inadequacy" Bladder Cancer Neg Hx Kidney Cancer Neg Hx Kidney Disease Neg Hx Nephrolithiasis Neg Hx Prostate Cancer Neg Hx Testicular Cancer Neg Hx Social History Socioeconomic History Marital status: Spouse name: Carolyn Number of children: 4 Years of education: 16 Highest education level: Not on file Occupational History 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 Social History Narrative Born/raised: Born in [facility] and raised by both parents who are both still living. Patient has a poor relationship with father and good relationship with mother. Patient has 4 siblings and relationship is positive with 2 of the four. (jose francisco, chin, salomon, and gina. Positive with salomon and gina). Education: H.S diploma from [employer]; college [employer] bachelors of economics and animal science Current living situation: lives with in [place] in a house Relationship status: 36 years to Carolyn Children: 4 children. Lost daughter Christi in car accident 15 years ago. 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 Financial: issues over farm; bankruptcy filed in 2004. : no Hobbies: none currently but would like to engage in more outdoor activities (e.g., [place] to the lakes and feel at peace with his life) Social support: siblings salomon and gina, carolyn is a "director of partnerships support", manager [employer] Protective lifestyle factors: has good support system in his and children, intelligent, educated Review of Systems Review of Systems Constitutional: Positive for fatigue. HENT: Negative for congestion. Eyes: Negative for visual disturbance. Respiratory: Negative for shortness of breath. Cardiovascular: Positive for chest pain. Gastrointestinal: Negative for abdominal pain. Genitourinary: Negative for dysuria. Musculoskeletal: Negative for arthralgias. Skin: Negative for rash. Allergic/Immunologic: Negative for immunocompromised state. Neurological: Negative for weakness. Hematological: Does not bruise/bleed easily. Psychiatric/Behavioral: Negative for agitation. Physical / Results Current Vital Signs Temp: 98.3 F (36.8 C) BP: 144/88 Weight: 98.8 kg (217 lb 12.8 oz) SpO2: 96 % Resp: 17 Pulse: 56 Current BMI (>50 = increased risk): (!) 32.15 O2 Device: Room Air Pain Ratin Physical Exam HENT: Head: Normocephalic. Nose: Nose normal. Mouth/Throat: Mouth: Mucous membranes are moist. Eyes: Pupils: Pupils are equal, round, and reactive to light. Neck: Musculoskeletal: Neck supple. Cardiovascular: Rate and Rhythm: Normal rate. Pulses: Normal pulses. Pulmonary: Effort: Pulmonary effort is normal. Abdominal: Palpations: Abdomen is soft. Musculoskeletal: General: No swelling. Skin: General: Skin is warm. Neurological: Mental Status: He is alert and oriented to person, place, and time. T COURT MAGISTRATE documented in this encounter Consult Notes Juan Nails MD - 01/10/2020 8:47 AM CST CARDIOLOGY CONSULT Assessment and Plan 1. Non-STEMI. 2. Hyperlipidemia. The patient's symptoms are concerning for coronary ischemia and he has had elevated troponin. This is consistent with non-ST elevation acute coronary syndrome. Troponin is already trending down at this point. At outside hospital he was loaded with 180 mg of Brilinta and is on a heparin drip as wellas having been given aspirin. PLAN: Left heart catheterization with coronary angiography and potential revascularization. Trans ID: [id number] NIGHT COURT MAGISTRATE NIGHT COURT MAGISTRATE Reason for consult NSTEMI HPI This is a pleasant 64-year-old male, with a history of hyperlipidemia, family history of coronary artery disease and obesity, who is admitted with chest pain and elevated troponin. He has been having chest discomfort off and on for about a week, but became somewhat worse yesterday and went to the [facility]. His EKG did not show any acute ST-T changes, but troponin was 0.1 and subsequently 0.4. Troponin currently has been elevated here at 0.397 and has subsequently trended down to 0.293. The patient's chest discomfort is almost gone at this point. He described it as substernal pins and needles and radiating to his right neck and right arm. Receipt: [id number] Trans ID: [id number] NIGHT COURT MAGISTRATE NIGHT COURT MAGISTRATE Lab Results Component Value Date LDL 137 (H) 01/09/2020 Social History Tobacco Use Smoking status: Never Smoker Smokeless tobacco: Never Used Substance Use Topics Alcohol use: No Alcohol/week: 0.0 standard drinks Comment: "once in a blue leach" Lab Results Component Value Date HGBA1C 5.5 01/09/2020 Past Medical History Past Medical History: Diagnosis Date Depression GERD (gastroesophageal reflux disease) Hyperlipidemia Past Surgical History Past Surgical History: Procedure Laterality Date ABDOMINAL SURGERY ARTHROSCOPY Left 05/28/2015 Procedure: LEFT KNEE ARTHROSCOPY, PARTIAL MEDIAL MENISECTOMY;; Surgeon: Chung Lindquist MD COLONOSCOPY ELBOW SURGERY RAIN FUNDOPLICATION 2009 TEETH EXTRACTION Prior to Admission Medications Medications Prior to Admission Medication Sig Dispense Refill Last Dose indomethacin (INDOCIN) 50 mg capsule Take 1 capsule (50 mg) by mouth 3 times a day with meals (Patient taking differently: Take 50 mg by mouth 1 time per day ) 90 capsule 0 01/09/2020 at am tamsulosin (FLOMAX) 0.4 mg capsule Take 1 capsule (0.4 mg) by mouth 1 time per day 30 capsule 12103/10/2019 at am aspirin 81 mg chewable tablet Take 1 tablet (81 mg total) by mouth 1 time per day 0 01/09/2020 at am acetaminophen (TYLENOL ARTHRITIS) 650 mg tablet Take 1,300 mg by mouth as needed. 01/09/2020 at Unknown time citalopram (CELEXA) 40 mg tablet Take 40 mg by mouth 1 time per day. 01/09/2020 at am busPIRone (BUSPAR) 5 mg tablet Take 5 mg by mouth 1 time per day Allergies No Known Allergies Social History reports that he has never smoked. He has never used smokeless tobacco. He reports that he does not drink alcohol or use drugs. Family History Family History Problem Relation Age of Onset Heart Disease Mother Hypertension Mother Osteoarthritis Mother Alcohol/Drug Father alcoholic Arthritis Brother Mental Illness Brother "self esteem issues" Mental Illness Sister "self esteem issues" Mental Illness Sister "inadequacy" Bladder Cancer Neg Hx Kidney Cancer Neg Hx Kidney Disease Neg Hx Nephrolithiasis Neg Hx Prostate Cancer Neg Hx Testicular Cancer Neg Hx Code Status Full Review of Systems History obtained from the patient. General ROS: Appetite is good. Weight has been stable. Restful sleep. General activity level is satisfactory. Constitutional ROS: Patient has no complaints of fever or chills. Psychological ROS: Mood has been good and there has been no depression. Ophthalmic ROS: No visual disturbances. No complaints of blurred or double vision. ENT ROS: No hearing loss. No nose bleeds, mouth or throat problems. Hematological and Lymphatic ROS: No chronic anemia or bleeding problems. Respiratory ROS: No complaints of dyspnea, orthopnea or PND. No complaints of wheezing. Cardiovascular ROS: No complaints of chest discomfort, palpitations, dizziness or syncope. Gastrointestinal ROS: No complaints of abdominal discomfort or change in bowel habits. No change in stools. No bleeding. No constipation or diarrhea. No heartburn. No nausea or vomiting. Genito-Urinary ROS: No frequency, nocturia, dysuria or hematuria. No complaints of incontinence. Musculoskeletal ROS: No complaints of muscle aches. No complaints of joint pain. Neurological ROS: No numbness or tingling. No seizures. No coordination changes. No memory loss. Dermatological ROS: No complaints of skin rashes or pruritus. Current Vital Signs Temp: 97.9 F (36.6 C) BP: 139/86 Pulse: 53 O2 Device: Room Air Resp: 16 Pain Ratin (out of 10) Weight: 97.9 kg (215 lb 12.8 oz) SpO2: 97 % Wt Readings from Last 3 Encounters: 01/10/20 97.9 kg (215 lb 12.8 oz) 03/28/18 100.7 kg (222 lb) 05/28/15 98.8 kg (217 lb 13 oz) Physical Exam General Appearance: Alert, well appearing, and in no distress. Mental Status: Alert, oriented to person, place, and time. Eyes: No arcus senilis. BRADEN. Conjunctiva and sclera are clear. Mouth: Oral cavity appears normal with teeth in good dental repair. Neck: No adenopathy. Chest: Clear to auscultation, no wheezes, rales or rhonchi. Symmetric air entry that is nonlabored. Cardiovascular: Good carotid upstroke with no bruits appreciated. JVP is normal. Quiet precordium with normal first and second heart tones. No murmur, gallop or rub is appreciated. Peripheral pulses of good quality and symmetrical. No bruits are heard over the femoral areas. Abdomen: Nontender. No organomegaly, abnormal masses or bruits. Bowel tones are present. Neurological: Alert, oriented, normal speech, no focal findings or movement disorder noted. Extremities: No pedal edema, no clubbing or cyanosis. Skin: Normal coloration and turgor, no rashes, no suspicious skin lesions noted. Diagnostics and Labs Relevant diagnostic, laboratory and radiological studies have been reviewed in the Electronic Medical Record. Lab Results Component Value Date TROPONINI 0.293 (H) 01/10/2020 TROPONINI 0.397 (H) 01/09/2020 Lab Results Component Value Date WBC 7.2 01/10/2020 RBC 4.69 01/10/2020 HEMOGLOBIN 13.6 01/10/2020 HEMATOCRIT 41.6 01/10/2020 MCV 88.7 01/10/2020 MCH 29.0 01/10/2020 MCHC 32.7 01/10/2020 PLTCOUNT 171 01/10/2020 NEUTROPCT 56.0 01/10/2020 LYMPHSPCT 27.0 01/10/2020 MONOSPCT 9.0 01/10/2020 EOSPCT 6.0 01/10/2020 METAMYELOPCT 2.0 01/10/2020 MYELOCYTEPCT 1.0 01/09/2020 Lab Results Component Value Date CO2 21 01/10/2020 CL 107 01/10/2020 POTASSIUM 4.0 01/10/2020 NA 140 01/10/2020 CREATSERUM 0.89 01/10/2020 GLUCOSE 93 01/10/2020 BUN 14 01/10/2020 CA 8.6 01/10/2020 Lab Results Component Value Date BNP 86 01/09/2020 Impression/Plan: See above Thank you for the consult. We will follow with you. documented in this encounter Miscellaneous Notes Case Glo - Wendie Root, RN - 01/11/2020 10:53 AM CSTCASE MANAGEMENT / SOCIAL SERVICE FINAL TRANSITION PLAN TRANSITION DATE: 01/10 TRANSITION TIME: morning INTENDED PAYER SOURCE FOR AGENCY: Not Applicable TRANSITION DESTINATION: Home with DOES ACCEPTING FACILITY REQUIRE COVID TESTING BEFORE DISCHARGE: N/A TRANSITION TRANSPORTATION: Family Car TRANSPORTATION PAYMENT: Not applicable TRANSITION CHOICES OFFERED: Cardiac Rehab Home: Family/Friend Support DOES THE PATIENT HAVE A PRIMARY CARE PHYSICIAN? Yes ANTONIO Fitzgerald PATIENT / SUBSTITUTE DECISION MAKER GOAL UPON TRANSITION: First Choice: Cardiac Rehab Home: Family/Friend Support PATIENT CHOICE EDUCATION: Not applicable MEDICARE 3 IP MIDNIGHT CRITERIA MET: N/A RESOURCE(S) PROVIDED: nothing needed at this time DOES PATIENT HAVE CLOTHING TO WEAR AT DISCHARGE? Yes ANTICIPATED MODE OF TRANSPORT TO AND FROM FOLLOW UP APPOINTMENTS: Drive self VERIFIED CORRECT PHARMACY IS ENTERED FOR DISCHARGE: Yes - Pharmacy: [facility] [id number] [place] [id number] METHOD OF PRESCRIBING MEDICATIONS: Medications to be E-prescribed to above pharmacy TRANSITION ROUNDING COMPLETED WITH THE FOLLOWING: director of student financial services Discussed in person COMMENTS / PATIENT AND FAMILY RESPONSE TO PLAN: Chart review completed. Discharge orders have been placed. Pt will discharge home with providing transportation. No question/concerns for CM in regards to discharge plan. CURRENT READMISSION RISK SCORE / HANDOFF: Predictive Risk Score Risk of Unplanned Readmission: 7.7 Handoff given: N/A SIGNED: Wendie Root RN, BSN Felt Strip Finisher [facility] ardiac Rehab - Jess Parker EP - 01/11/2020 9:57 AM CSTCardiac Rehab Phase 1 Inpatient Note: Diagnosis: NSTEMI, Stent x2 Physical Activity Completed: Ambulate in pritchett Distance Ambulated: 300 feet Ambulation Assistance: independent Patient response to Exercise: good Exercise Comments: Asymptomatic. Heart healthy education material given and outpatient cardiac rehabprogram explained to pt and . Ready for d/c. Vitals Exercise Heart Rate - 75 bpm O2 Device - RA Exercise SpO2 - 97% Assessment/Plan: Tolerates activity well. Encouraged patient to ambulate in hallway 3-4 times daily as tolerated with gradual progression. -Progress as tolerated -Patient may self ambulate -Patient referred to outpatient Cardiac Rehab program -Continue to follow until until Discharge -Home activity and exercise teaching completed Recommendation: "Outpatient Cardiac Rehab [place] Continue Inpatient Cardiac Rehab Plan of Care daily until discharge. Cardiac Rehab [facility] Pager: [phone] are Planning - Rakel Callejas RN - 01/11/2020 4:[address] MAGISTRATE Problem: RISK FOR DECREASED CARDIAC TISSUE PERFUSION Goal: ACTIVITY TOLERANCE Description: DESCRIPTION: Physiologic response to energy-consuming movements with daily activities. 1=Severly compromised, 2=Substantially compromised, 3=Moderately compromised, 4=Mildly compromised, 5=Not compromised. 01/11/2020 0455 by Rakel Callejas, RN Outcome: NOC Rating 4 Flowsheets (Taken 01/11/2020 045) Initial Score: 3 Target Score: 5 Plan of care reviewed with: Patient Patient specific goal for the day: remain chest pain free Patient specific goal for the stay: return to baseline and go home Achieve goal for stay: By discharge Patient Progress: NO significant events overngiht. Patient rested well. VSS. Tele SB with HR in the 50s. Rt radial dressing C/D/I. linical Team - Rakel Callejas RN - 01/10/2020 9:30 PM CSTPatient A/Ox4. VSS. Tele NSR with HR in the 50-60s. Reports intermittent SOB, O2 sat >90% on RA. Educated use of IS, offered supplemental O2 via nc for comfort. Denies any other complaints at this time. Rt radial site C/D/I. Ambulating, eating and voiding with no problem. Will continue to monitor. linical Team - Debbi Jimenez RN - 01/10/2020 2:25 PM [id number] - 2 ml out of band 1416 - 2 ml out of band 1435 - 2 ml out of band 1450 - 2 ml out of band 1510 - Band removed and pressure dressing placed. No bleeding noted at site. T COURT MAGISTRATE Cardiac Rehab - Cathy Dean EP - 01/10/2020 2:02 PM CSTCardiac Rehab Phase 1 Inpatient Note: Diagnosis: Stent x2 Pt was seen resting in bed. He was introduced cardiac rehab in [place]. Pt notes that he has a very active job and independent at baseline. PT declines walking at this time due to wanting to rest. Encourage walking later this day, pt receptive to plan Assessment/Plan: Tolerates activity well. Encouraged patient to ambulate in hallway 3-4 times daily as tolerated with gradual progression. -Progress as tolerated -Patient referred to outpatient Cardiac Rehab program -Continue to follow until until Discharge Recommendation: "Outpatient Cardiac Rehab- [place] Continue Inpatient Cardiac Rehab Plan of Care daily until discharge. Cardiac Rehab Alpha Pager: [phone] ase Mgmt - Wendie Root RN - 01/10/2020 1:45 PM CSTCASE MANAGEMENT / SOCIAL SERVICE TRANSITION PLAN - INITIAL ASSESSMENT TRANSITION PLAN: Will Continue to Follow for Support and Progression Towards Final Transition Plan BARRIERS TO TRANSITION: Awaiting Collateral Information Medical barriers:Cardiology following, Tele, Angiogram COMMENTS / PATIENT AND FAMILY RESPONSE TO PLAN: Met with pt in room today. CM role explained and discharge planning discussed. Pt lives at home withwife Lizzie Pt is independent with ADLs. Denies any use of services/assistance or DME. Pt drives, has a PCP, and manages own medications/finances. No discharge needs identified at this time. CM will continue to follow for transition planning. ADMISSION DX: nstemi PATIENT STATUS: Inpatient RELEASE OF INFORMATION: Yes -- verbal for: Discharge planning SOURCES OF INFORMATION (See demographics for contact information): director of student financial services Medical Record Nurse: Bedside Patient CURRENT LIVING SITUATION / LEVEL OF ASSISTANCE: Lives with Lizzie Independent COMMUNITY SERVICES: None HEALTHCARE DIRECTIVE: No POWER OF SAP TECHNICAL DEVELOPER: None FINANCIAL CONCERNS: No Concerns PRIMARY CARE PHYSICIAN: Yes Mehreen Koenig NP [facility] : No IS PATIENT'S ADMISSION ASSOCIATED WITH TIA, ISCHEMIC, OR HEMORRHAGIC STROKE?: No LANGUAGE / COMMUNICATION BARRIERS: No PATIENT / SUBSTITUTE DECISION MAKER GOAL UPON TRANSITION: First Choice: Home: Family/Friend Support ANTICIPATED NEEDS, TRANSITION CHOICES OFFERED: Home: Non-nursing Services RESOURCE(S) PROVIDED: nothing needed at this time DOES PATIENT HAVE CLOTHING TO WEAR AT DISCHARGE? Yes ANTICIPATED MODE OF TRANSPORT UPON DISCHARGE: Family Car VERIFIED CORRECT PHARMACY IS ENTERED FOR DISCHARGE: Yes - Pharmacy: [facility] [address] [place] [id number] CURRENT READMISSION RISK SCORE Please refer to readmission risk assessment flowsheet for further details. SIGNED: Wendie Root RN, BSN Felt Strip Finisher [facility] ostOp Progress Note - Kennedy Powers MD - 01/10/2020 12:[address] MAGISTRATE Immediate Post- Cardiac Catheterization Progress Note Att. Phys: Elfego Mcfadden MD Operative Date: 01/10/2020 Surgeon: Kennedy Powers MD Joint Sealer: none Pre-Operative Diagnosis: NSTEMI. Post-Operative Diagnosis: significant 2V CAD involving LAD(70% Mid)/ D1(90% Prox) - s/p PCI to LAD with a 2.75*38 mm & PCI-D1 with a 2.5*18 mm Chris SHAYNE, respectively. Anesthesia Type: See Straw Hat Brim Raiser Operator procedure log Operative Procedure: CAG, LHC, PCI-LAD/D1. Specimens: None Fluids Given: See Straw Hat Brim Raiser Operator procedure log Urine Output: See Straw Hat Brim Raiser Operator procedure log Estimated Blood Loss: 10 mL Drains: none Findings: Coronary anatomy- significant 2V CAD involving LAD(70% Mid)/ D1(90% Prox) - s/p PCI to LAD with a 2.75*38 mm & PCI-D1 with a 2.5*18 mm Chris SHAYNE, respectively. Left ventriculography- mildly elevated EDP. Hemodynamics- normal BP. Complications: None Disposition: ASA indefinitely, Brilinta for at least 1 yr. Postoperative Condition: stable The procedure was performed using moderate conscious sedation. The patient was monitored utilizing continuous pulse oximetry, continuous telemetry and intermittent blood pressure measurements throughout the procedure without notable aberration in vitals. Please see the patient's procedure log for fur ther information. Physician start time 11:24 am. Physician stop time 11:57 am. hysician Pre Procedure Evaluation - Kennedy Powers MD - 01/10/2020 10:52 AM CSTMODERATE SEDATION: Moderate Sedation Adult Without Short Form Physician Pre-Procedure Sedation Plan (Moderate Sedation) (Note: A complete H&P is required for procedures requiring anesthesia and for inpatients.) Indication for Care: I affirm the indication for the procedure is still present. History & Physical: An up to date H&P has been completed and is available for this procedure. Date of H&P: 01/10/20. Chief Complaint/HPI/Reason for Procedure: NSTEMI. Sedation Plan: Moderate Sedation: ASA Score = 3 Mallampati Class = II (soft palate, uvula, fauces visible) Physician's Affirmation of Discussion: I have explained the known risks, benefits, goals, and alternatives to the procedure or treatment and/or sedation. I affirm the indication for the procedure is still present. I have assessed the patient and vital signs immediately prior to sedation and concur with sedation plan. linical Team - Debbi Jimenez RN - 01/10/2020 9:23 AM CSTPatient is alert and oriented and in no acute distress. Vital signs are stable and assessment is nega tive. Lungs are clear and vital signs are stable. Patient is tolerating the heparin well. Does not complain of pain, except he states he has a little headache, but it is tolerable. is at bedside. Plan of care discussed with patient. All questions asked and answered to patient satisfaction. are Planning - Debbi Jimenez RN - 01/10/2020 9:20 AM CSTPatient goals progressing as expected. Heparin gtts is running at 19 kg/unit. Patient tolerating well. IV is patent. are Planning - Rakel Callejas RN - 01/10/2020 6:[address] MAGISTRATE Problem: RISK FOR DECREASED CARDIAC TISSUE PERFUSION Goal: ACTIVITY TOLERANCE Description: DESCRIPTION: Physiologic response to energy-consuming movements with daily activities. 1=Severly compromised, 2=Substantially compromised, 3=Moderately compromised, 4=Mildly compromised, 5=Not compromised. Outcome: NOC Rating 3 Flowsheets (Taken 01/10/2020 0752) Initial Score: 3 Target Score: 5 Plan of care reviewed with: Patient Patient specific goal for the day: remain chest pain free Patient specific goal for the stay: return to baseline and go home Achieve goal for stay: By discharge Patient Progress: Patient rested well. VSS. Tele NSR/ SB with HR in the 50-60s on RA. Heparin infusing with the current rate at 19U/kg/hr. Denies chest pain or any other complaints overnight. Continue Trop trend and plan for Echo and Cardiology consult in AM. T COURT MAGISTRATE Supplemental Progress Note - Yvrose Jimenez APRN-BELL - 01/09/2020 11:02 PM CSTTroponin 0.397, DA was on Heparin drip, will be restarting it. linical Team - Lizzie Castellon NA - 01/09/2020 10:30 PM CSTEKG for NSTEMI done by [facility]. EKG print out handed to Dr Nicholson. , linical Team - Rakel Callejas, SIVA - 01/09/2020 10:04 PM CSTArrived at 2132 accompanied by EMS. Admitted for chest pain r/o. Currently denies complaints of chest pain, N/V, SOB, or lightheadedness/ dizziness. Heparin drip discontinued upon arrival. VS taken WN L. Settled in room CDU09 and oriented to call light, bed/tv control. Refer to Patient Admission Education. MD notified of patients arrival. Upon Admission to CDU, skin assessment completed with Vane Duran RN Upon skin assessment including pressure points findings include: Scattered scratches on BLE and generalized skin tags noted. No other skin issues observed, pressure points intact. Plan/Intervention Will continue to monitor and reassess for new skinbreakdown T COURT MAGISTRATE documented in this encounter Plan of Treatment Name Type Priority Associated Diagnoses Date/Ti me EKG CVS STAT 01/10/2020 1:[address] MAGISTRATE EKG to be done 3 hours post CVS Routine 01/10/2020 3:[address] MAGISTRATE coronary intervention documented as of this encounter Procedures Procedure Name Priority Date/Time Associated Comments Diagnosis MAGNESIUM Routine 01/11/2020 5:39 Results for this AM NIGHT COURT MAGISTRATE procedure are i n the results section. RENAL FUNCTION PANEL Routine 01/11/2020 5:39 Res ults for this AM NIGHT COURT MAGISTRATE procedure are i n the results section. EKG Routine 01/10/2020 3:[address] MAGISTRATE EKG STAT 01/10/2020 1:[address] MAGISTRATE PTT Timed Routine 01/10/2020 12:31 Results fo r this PM NIGHT COURT MAGISTRATE procedure are i n the results section. ACTIVATED CLOTTING Routine 01/10/2020 11:34 Resul ts for this TIME POCT AM NIGHT COURT MAGISTRATE procedure are i n the results section. CARDIAC CATH Routine 01/10/2020 11:24 Results for this POSSIBLE ANGIOPLASTY AM NIGHT COURT MAGISTRATE procedu re are in STENT DERIVATIVES TRADER the results section. ECHO ADULT COMPLETE Routine 01/10/2020 9:33 Resu lts for this AM NIGHT COURT MAGISTRATE procedure are i n the results section. LAB ONLY-MANUAL Routine 01/10/2020 4:57 Results for this DIFFERENTIAL AM NIGHT COURT MAGISTRATE procedure are i n the results section. LAB ONLY-COMPLETE Routine 01/10/2020 4:57 Result s for this BLOOD COUNT WITH AM NIGHT COURT MAGISTRATE procedure a re in DIFFERENTIAL the results section. PTT Timed Routine 01/10/2020 4:57 Results fo r this AM NIGHT COURT MAGISTRATE procedure are i n the results section. TROPONIN I Routine 01/10/2020 4:57 Results for this AM NIGHT COURT MAGISTRATE procedure are i n the results section. BASIC METABOLIC Routine 01/10/2020 4:57 Results for this PANEL AM NIGHT COURT MAGISTRATE procedure are i n the results section. LAB ONLY-COMPLETE Routine 01/10/2020 4:57 Result s for this BLOOD COUNT WITH AM NIGHT COURT MAGISTRATE procedure a re in DIFFERENTIAL the results section. EKG STAT 01/09/2020 10:29 Results for this PM NIGHT COURT MAGISTRATE procedure are i n the results section. LAB ONLY-MANUAL Routine 01/09/2020 10:17 Results for this DIFFERENTIAL PM NIGHT COURT MAGISTRATE procedure are i n the results section. LAB ONLY-COMPLETE JUSTIN 01/09/2020 10:17 Result s for this BLOOD COUNT WITH PM NIGHT COURT MAGISTRATE procedure a re in DIFFERENTIAL the results section. LIPID PANEL Routine 01/09/2020 10:17 Results for this PM NIGHT COURT MAGISTRATE procedure are i n the results section. PTT Routine 01/09/2020 10:17 Results for this PM NIGHT COURT MAGISTRATE procedure are i n the results section. GLYCATED HEMOGLOBIN Routine 01/09/2020 10:17 Resu lts for this PM NIGHT COURT MAGISTRATE procedure are i n the results section. TROPONIN I Timed Routine 01/09/2020 10:17 Results fo r this PM NIGHT COURT MAGISTRATE procedure are i n the results section. MAGNESIUM Routine 01/09/2020 10:17 Results for this PM NIGHT COURT MAGISTRATE procedure are i n the results section. BASIC METABOLIC Routine 01/09/2020 10:17 Results for this PANEL PM NIGHT COURT MAGISTRATE procedure are i n the results section. LAB ONLY-COMPLETE JUSTIN 01/09/2020 10:17 Result s for this BLOOD COUNT WITH PM NIGHT COURT MAGISTRATE procedure a re in DIFFERENTIAL the results section. BRAIN NATRIURETIC Routine 01/09/2020 10:17 Result s for this PEPTIDE PM NIGHT COURT MAGISTRATE procedure are i n the results section. documented in this encounter Results MAGNESIUM (01/11/2020 5:[address] MAGISTRATE) Pathologist Sig community health Magnesium 2.0 1.8 - 2.4 mg/dL [address] Specimen Blood - Blood specimen (specimen) Performing Organization Address [facility] Phone Number [place] [address] [address] [place] [address] RENAL FUNCTION PANEL (01/11/2020 5:[address] MAGISTRATE) Pathologist Sig community health Glucose 94 70 - 100 mg/dL [address] BUN 12 6 - 22 mg/dL [address] Creatinine 0.78 (L) 0.80 - 1.[address] mg/dL BUN/Creatinine Ratio 15.4 10.0 - 25.[address] Sodium 137 135 - 145 meq/L [address] Potassium 4.2 3.5 - 5.3 meq/L [address] Chloride 107 99 - 110 meq/L [address] CO2 21 20 - 29 meq/L [address] Anion Gap with K 13 6 - 20 meq/L [address] Calcium 8.7 8.5 - 10.[address] mg/dL Phosphorus 3.7 2.5 - 4.5 mg/dL [address] Albumin 3.8 3.5 - 5.0 g/dL [address] Corrected Calcium 8.9 8.5 - 10.[address] mg/dL Age [address] eGFR Non- >90 >=[address] [place] mL/min/1.73m2 eGFR >90 >=[address] mL/min/1.73m2 Specimen Blood - Blood specimen (specimen) Performing Organization Address [facility] Phone Number [place] [address] [address] [place] [address], [place] [address] PTT (01/10/2020 12:[address] MAGISTRATE) Pathologist [facility] community [facility] APTT >150 (HH) 24 - [address] Specimen Blood - Blood specimen (specimen) Performing Organization Address [facility]/Zipcode Phone Number [place] [facility] [address] [place] [address] ACTIVATED CLOTTING TIME POCT (01/10/2020 11:[address] MAGISTRATE) Pathologist Sig nature Activated Clotting 257 (H) 100 - [address] [facility] POINT OF CARE TESTING Specimen Blood - Blood specimen (specimen) Narrative Performed At DEVICE: [id number] [facility] POINT OF CARE TESTING Performing Organization Address City/[facility]/Zipcode Phone Number [facility] POINT OF [address] [place] [address] CARE TESTING Cardiac Cath Possible Angioplasty Stent Straw Hat Brim Raiser Operator - Left; With grafts? No (01/10/2020 11:[address] MAGISTRATE) Specimen Narrative Performed At This result has an attachment that is no t available. [facility] Patient: ERIK SNIDER [facility] Exam Date: 01/10/[address] Exam Time: 11:24 AM-11:57 AM [place], [place] [id number] Department of Interventional Cardiology Diagnostic Left Heart Catheterization Report, Cardiac Interventional Report : 1955 Fluoro Time: 9.9 min. Patient Status: Inpatient Age: 64 year(s) Cath Status: Patient Room: [address] nathan: Male Diagnostic Relocation Director: KENNEDY POWERS MD Loan Auditor: KENNEDY POWERS MD Indication: Angina/[place]: myocardial infa rction without ST elevation (NSTEMI). Diagnostic Conclusions: - There is significant double vessel coronary artery d isease Interventional Conclusions: - A successful intervention of the LAD/D 1 was performed with 1 SHAYNE in each. 0% residual stenosis in both post PCI. Interventional Summary First diagonal: A successful Drug Elutin g Stent was deployed using a RESOLUTE CHRIS [id number]. Mid left anterior descending: A successful D rug Eluting Stent was deployed using a RESOLUTE CHRIS [id number]. Procedures Performed: Fluoro 0.1-60 Minutes. Medication/Infusi on/Drip. Art Access - R radial artery. Left Heart Cath No Ventriculogram. Selective Rt Coronary Angiography. Selective Lt Coron brenda Angiography. Activated Clotting Time. Drug Eluting Stent Placement. PTCA. Radial Artery Compression Device. Diagnostic Findings: Coronary Angiography The coronary circulation is right dominant. Left Main Left main artery: The segment is large. Angiography sh ows no disease. Left Anterior Descending Left anterior descending artery: The seg ment is large. Mid left anterior descending: There is a 70 % stenosis. First diagonal: The segment is large. There is a 90 % stenosis in the proximal portion of the segment. Second diagonal: The segment is small. Angiography shows no disease. Circumflex Circumflex artery: The segment is large. Angiography shows no disease. First obtuse marginal: The segment is large. There is a 30 % stenosis in the proximal portion of th e segment. Right Coronary Right coronary artery: The segment is mo derately sized. Angiography shows no disease. Right posterior descending artery: The segment is moderately sized. Angiography shows no disease. Right Posterolateral Segment: The segment is small. Angiography shows no disease. Left Heart Cath Left ventricular function was not assess ed. Ejection fraction was not calculated. Interventional Findings: Interventional Details First diagonal: The initial stenosis was 90 %. This was an ACC/AHA High/C lesion for intervention. Guidewire crossing was successful. A successful Drug Eluting Stent was depl oyed using a CATH GUIDE 6FR LAUNCHER 6EBU3.75 during setup, a BMW HC .014 J 190CM [id number] during setup , and a RESOLUTE CHRIS RX2.20R51NE During Procedure. The total number of attempt(s) was 1. Th e maximum inflation pressure was 18(aaron). A successful Balloon angioplasty was per formed using a NC EUPHORA RX 3.0X12 During Procedure. The total number of attempt(s) was 4. Th e maximum inflation pressure was 12(aaron). Following intervention there is a 0 % re sidual stenosis. There was JESUS ALBERTO Flow 2 before the procedure and JESUS ALBERTO Flow 3 following the procedure. No significant vessel dissect ion noted. Mid left anterior descending: The initia l stenosis was 70 %. This was an ACC/AHA High/C lesion for intervention. Guidewire crossing was successful. A successful Drug Eluting Stent was depl oyed using a CATH GUIDE 6FR LAUNCHER 6EBU3.75 during setup, a RUNTHROUGH XT FLOPPY during setup, and a RESOLUTE CHRIS [id number] During Procedure. The total number of attempt(s) was 1. Th e maximum inflation pressure was 12(aaron). A successful Balloon angioplasty was per formed using a NC EUPHORA RX 3.0X12 During Procedure. The total number of attempt(s) was 5. Th e maximum inflation pressure was 20(aaron). Following intervention there is a 0 % re sidual stenosis. There was JESUS ALBERTO Flow 3 before the procedure and JESUS ALBERTO Flow 3 following the procedure. No significant vessel dissect ion noted. Procedure Narrative: Access Right radial artery: The puncture site was infiltrated with 3 .0 ml of 1% Lidocaine. Vascular access was obtained using modified seldinger technique and a GLIDESHEATH SL NATHAN 6FR [id number] was advanced into the vessel. Hemostasis/Sheath Status: Hemostasis was successful using mechanical compression (RADIAL TR BAND). Coronary Angiography Left Coronary System: A catheter was positioned into the Vesse l Ostium under fluoroscopic guidance. Contrast injections were performed using hand injection. Angiograms were obtain ed in multiple views. Right Coronary System: A catheter was positioned into the Vesse l Ostium under fluoroscopic guidance. Contrast injections were performed using hand injection. Angiograms were obtain ed in multiple views. Hemodynamic Impressions General Impressions: Hemodynamic assessm ent demonstrates No systemic hypertension, Left ventricular end diastolic pressure is mildly elevated. Hemodynamic Findings Pressures: Baseline: LV pressure 98mmH g, EDP 14. Baseline: AO pressure 113/69mmHg, mean 88. Hemodynamic Pressures-Phase: Baseline Location : LV Pressure s : 98 mmHg Pressure ed : 14 mmHg HR : 58 bpm Hemodynamic Pressures-Phase: Baseline Location : Ao Pressure s : 113 mmHg Pressure d : 69 mmHg Pressure m : 88 mmHg HR : 55 bpm Flow Calculations, Phase: Baseline VO2: 266.42 ml/min Shunts Acute complication: No complications Contrast: Description Dose Unit HIS No. Reference No. Serial No. Lot No. Omnipaque 130. 000 ml C34 C34 X-Ray: Exam total DAP: 9430.97 cGycm- sq Air Kerma/Exam Total Dose: 1010 mGy Ordering Physician: JUAN NAILS MD CCL Extension Work Instructor: MADHURI ROME RN Scrub: Jono Mcnally Monitor: JUAN WELLS Hay Stacker Operator: RT AMARJIT(R) Primary Relocation Director: JUAN NAILS MD Diagnostic Physician Signature: (No Signature Object) Interventional Physician Signature: (No Signature Object) Procedure Note Interface, Inc Results No Pull Forward - 01/10/2020 3:[address] MAGISTRATE Patient: ERIK SNIDER [facility] Exam Date: 01/10/[address] Exam T josefina: 11:24 AM-11:57 AM [place], [place] [address] [facility] of Interventional Cardiology Diagnostic Left Heart Catheterization Re port, Cardiac Interventional Report : 1955 Fluoro Time: 9.9 min. Patient Status: Inpatient Age: 64 year(s) Cath Status: Patient Room: [place] [address] Gender: Male Diagnostic Relocation Director: KENNEDY DONNELLY MD Loan Auditor: KENNEDY DONNELLY MD Indication: Angina/[place]: myocardial infar ction without ST elevation (NSTEMI). Diagnostic Conclusions: - There is significant double vessel cor onary artery disease Interventional Conclusions: - A successful intervention of the LAD/D 1 was performed with 1 SHAYNE in each. 0% residual stenosis in both post PCI. Interventional Summary First diagonal: A successful Drug Elutin g Stent was deployed using a RESOLUTE CHRIS RX2.90U38LA. Mid left anterior descending: A successful D rug Eluting Stent was deployed using a RESOLUTE CHRIS RX2.05V09WV. Procedures Performed: Fluoro 0.1-60 Minutes. Medication/Infusi on/Drip. Art Access - R radial artery. Left Heart Cath No Ventriculogram. Selective Rt Coronary Angiography. Selective Lt Coron brenda Angiography. Activated Clotting Time. Drug Eluting Stent Placement. PTCA. Radial Artery Compression Device. Diagnostic Findings: Coronary Angiography The coronary circulation is right domina nt. Left Main Left main artery: The segment is large. Angiography shows no disease. Left Anterior Descending Left anterior descending artery: The seg ment is large. Mid left anterior descending: There is a 70 % stenosis. First diagonal: The segment is large. There is a 90 % stenosis in the proximal portion of the segment. Second diagonal: The segment is small. Angiography shows no d isease. Circumflex Circumflex artery: The segment is large. Angiography shows no disease. First obtuse marginal: The segment is large. There is a 30 % stenosis in the proximal portion of the segment. Right Coronary Right coronary artery: The segment is mo derately sized. Angiography shows no disease. Right posterior descending artery: The segment is moderately sized. Angiography shows no disease. Right Posterolateral Segment: The segment is small. Angiography shows no disease. Left Heart Cath Left ventricular function was not assess ed. Ejection fraction was not calculated. Interventional Findings: Interventional Details First diagonal: The initial stenosis was 90 %. This was an ACC/AHA High/C lesion for intervention. Guidewire crossing was successful. A successful Drug Eluting Stent was depl oyed using a CATH GUIDE 6FR LAUNCHER 6EBU3.75 during setup, a BMW HC .014 J 190CM [id number] during setup , and a RESOLUTE CHRIS RX2.50P24VX During Procedure. The total number of attempt(s) was 1. Th e maximum inflation pressure was 18(aaron). A successful Balloon angioplasty was per formed using a NC EUPHORA RX 3.0X12 During Procedure. The total number of attempt(s) was 4. Th e maximum inflation pressure was 12(aaron). Following intervention there is a 0 % re sidual stenosis. There was JESUS ALBERTO Flow 2 before the procedure and JESUS ALBERTO Flow 3 following the procedure. No significant vessel dissection noted. Mid left anterior descending: The initia l stenosis was 70 %. This was an ACC/AHA High/C lesion for intervention. Guidewire crossing was successful. A successful Drug Eluting Stent was depl oyed using a CATH GUIDE 6FR LAUNCHER 6EBU3.75 during setup, a RUNTHROUGH XT FLOPPY during setup, and a RESOLUTE CHRIS [id number] During Procedure. The total number of attempt(s) was 1. Th e maximum inflation pressure was 12(aaron). A successful Balloon angioplasty was per formed using a NC EUPHORA RX 3.0X12 During Procedure. The total number of attempt(s) was 5. Th e maximum inflation pressure was 20(aaron). Following intervention there is a 0 % re sidual stenosis. There was JESUS ALBERTO Flow 3 before the procedure and JESUS ALBERTO Flow 3 following the procedure. No significant vessel dissection noted. Procedure Narrative: Access Right radial artery: The puncture site was infiltrated with 3 .0 ml of 1% Lidocaine. Vascular access was obtained using modified seldinger technique and a GLIDESHEATH SL NATHAN 6FR [id number] was advanced into the vessel. Hemostasis/Sheath Status: Hemostasis was successful using mechanical compression (RADIAL TR BAND). Coronary Angiography Left Coronary System: A catheter was positioned into the Vesse l Ostium under fluoroscopic guidance. Contrast injections were performed using hand injection. Angiogra ms were obtained in multiple views. Right Coronary System: A catheter was positioned into the Vesse l Ostium under fluoroscopic guidance. Contrast injections were performed using hand injection. Angiogra ms were obtained in multiple views. Hemodynamic Impressions General Impressions: Hemodynamic assessm ent demonstrates No systemic hypertension, Left ventricular end diastolic pressure is mildly elevate d. Hemodynamic Findings Pressures: Baseline: LV pressure 98mmHg , EDP 14. Baseline: AO pressure 113/69mmHg, mean 88. Hemodynamic Pressures-Phase: Baseline Location : LV Pressure s : 98 mmHg Pressure ed : 14 mmHg HR : 58 bpm Hemodynamic Pressures-Phase: Baseline Location : Ao Pressure s : 113 mmHg Pressure d : 69 mmHg Pressure m : 88 mmHg HR : 55 bpm Flow Calculations, Phase: Baseline VO2: 266.42 ml/min Shunts Acute complication: No complicatio ns Contrast: Description Dose Un it HIS No. Reference No. Serial No. Lot No. Omnipaque 130.000 ml C34 C34 X-Ray: Exam total DAP: 9430.97 cGycm-sq Air Kerma/Exam Total Dose: 1010 mGy Ordering Physician: JUAN Schwartz MD [facility] Extension Work Instructor: MADHURI ROME RN Scrub: Jono Mcca[facility]y [facility] Monitor: JUAN WELLS Hay Stacker Operator: RADHA MYRICK RT(R) Primary Relocation Director: JUAN Schwartz MD Diagnostic Physician Signature: (No Signature Object) Interventional Physician Signature: (No Signature Object) Performing Organization Address City/State/Zipcode Phone Number [facility] [place], [place] ECHO ADULT COMPLETE (01/10/2020 9:[address] MAGISTRATE) Specimen Narrative Performed At This result has an attachment that is no t available. [facility] Patient: ERIK SNIDER MR#: [id number] Exam Date: 01/10/[address] [facility] [address] [place] [address] BP: 139/86 mmHg HR: 51 bpm : 1955 Exam Location: Bedside Height: 69.00 "(175.3 cm) Age: 64 year(s) Patient Room: [place] [address] Weight: 217 lbs.(98.43 kg) Gender: Male Patient Status: Inpatient BSA: 2.14 m2 Bleacher Kraft Pulp: RAMIREZ PASTRANA RD CS Reading Physician: SCHUYLER SAAVEDRA MD F ACC Ordering Physician: CHANI NICHOLSON MD Procedure Indication(s): NSTEMI Examination: TTE Complete 2D(m-mode), Complete Spectral Doppler, Color Doppler, with Contrast,Optison Exam Comments The cardiac rhythm is sinus bradycardia Conclusions Left Ventricle: Normal left ventricular systolic functio n. The ejection fraction is visually estimated to be 55 %. Left Atrium: Mildly dilated left atrium. Aorta: There is dilatation of the ascending aorta measuring 4 2.0 mm. Pulmonary Artery: The tricuspid jet envelope definition is inadequate for estimation of RV systolic pressure. Comparison Study Comparison Study: No previous echo was available for c omparison Findings Left Ventricle: Normal left ventricular size. Normal lef t ventricular wall thickness. Normal left ventricular systolic function. The ejection fraction is visually estimated to be 55 %. There are no left ventricular regional wall motion abnormalities. The mid anterolateral and apical lateral wall segments are hyp okinetic. Normal left ventricular diastolic function. Left Atrium: Mildly dilated left atrium. Aortic Valve: The aortic valve is tricuspid. Normal ao rtic cuspal mobility. No significant aortic regurgitation. No aortic stenosis. 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 There is dilatation of the ascending aorta measuring 42.0 mm. Mitral Valve: Mild mitral leaflet thickening. No mitral stenosis. IAS: No gross evidence of shunt flow seen; ho wever the possibility of a PFO cannot be completely ruled out. Right Ventricle: Normal right ventricular size. Normal ri ght ventricular systolic function. Normal right ventricular wall thickness. Pulmonary Artery: The tricuspid jet envelope definition is inadequate for estimation of RV systolic pressure. Right Atrium: Normal right atrial size. Tricuspid Valve: Normal tricuspid valve structure. Trivia l tricuspid regurgitation. No significant tricuspid stenosis. Pulmonic Valve: Normal pulmonary valve structure. Trivia l pulmonary regurgitation. No pulmonary stenosis. IVC: Dilated IVC with normal respirophasic changes. Pericardium: No significant pericardial effusion. No pleural effusi on. Measurements Left Ventricle Aortic Valve Label Value Normal Value Label Value Normal Value LVDd, 2D 40.7 mm LVOT Vmax 94 cm/s LVDs, 2D 26 mm AV Vmax 115 cm/s IVSd, 2D 11.5 mm LVOTd 23 mm LVPWd, 2D 9.4 mm LVOT VTI 21.1 cm FS, 2D 36.12 % LVOT PGmax 4 mmHg LVEDV, 2D 73 ml AV Vmean 84 cm/s LVESV, 2D 25 ml AV VTI 25.8 cm Cardiac Output 4.49 L/min AV PGmax 5 mmHg Cardiac Index 2.1 AV PGmean 3 mmHg L/min/m-sq ISAAK (Vmax) 3.4 cm-sq LVEDVI, 2D 34.1 ml/m 2 AV Vmax, Caliper 115 cm/s LVESVI, 2D 11.7 ml/m 2 ISAAK (VTI) 3.4 cm-sq Stroke Index 41.12 Obstructive Index 0.82 ml/m-sq (V max) Left Atrium Obstruction Index 0.82 Label Value Normal Value (VTI) LADs Long. 59 mm Mitral Valve LA Volume Index 36.3 ml/m-sq Label Value Normal Value Aorta MV E Vmax 54 cm/s Label Value Normal Value MV A Vmax 59 cm/s Ao Sinus, 2D 42 mm MV E/A 0.92 Ao Asc 42 mm MV E/E' lateral 4.6 Great Vessels MV E/E' septal 7.7 Label Value Normal Value MV Dec Time 252 ms PVein S 47 cm/s MV E' septal 7.1 cm/s PVein D 30 cm/s MV E' lateral 11.8 cm/s S/D Ratio 1.6 Tricuspid Valve Heart Rate Label Value Normal Value Label Value Normal Value RA Pressure 8 mmHg Heart Rate 51 bpm Pulmonic Valve Label Value Arlen l Value PV Vmax 61 cm/s PV PGmax 1 mmHg Contrast Details Contrast: 3.0 ml Optison is requested. The patient denies contraindications and gives verbal consent. Optison contrast (3 ml of activated Opti son diluted with 3 ml of saline) was used to evaluate left ventricular function to enhance endocardial borde r delineation Lot #: [id number] Electronically signed by SCHUYLER SAAVEDRA MD [facility] on 12/22 at 12:19 PM Wall Motion Scores Procedure Note Interface, Inc Results No Pull Forward - 01/10/2020 12:[address] MAGISTRATE Patient: ERIK SNIDER MR#: [id number] Exam Date: 01/10/[address] [facility] [address] [place] [address] BP: 139/86 mmHg HR: 51 bpm : 1955 Exa m Location: Bedside Height: 69.00 "(175.3 cm) Age: 64 year(s) Pat ient Room: [place] [address] Weight: 217 lbs.(98.43 kg) Gender: Male Pat ient Status: Inpatient BSA: 2.14 m2 Bleacher Kraft Pulp: RAMIREZ GARCIA [facility] Reading Physician: SCHUYLER OVERTON MD [facility] Ordering Physician: CHANI CUEVAS MD Procedure Indication(s): NSTEMI Examination: TTE Co mplete 2D(m-mode), Complete Spectral Doppler, Color Doppler, with Contrast,Optison Exam Comments The ca rdiac rhythm is sinus bradycardia Conclusions Left Ventricle: Normal left ventricular systolic functio n. The ejection fraction is visually estimated to be 55 %. Left Atrium: Mildly dilated left atrium. Aorta: There is dilatation of the ascending aor ta measuring 42.0 mm. Pulmonary Artery: The tricuspid jet envelope definition is inadequate for estimation of RV systolic pressure. Comparison Study Comparison Study: No previous echo was a vailable for comparison Findings Left Ventricle: Normal left ventricular size. Normal lef t ventricular wall thickness. Normal left ventricular systolic function. The ejection fraction is visually estimated to be 55 %. There are no left ventricular regional wall motion abnormalities. The mid anterolateral and apical lateral wall segments are hyp okinetic. Normal left ventricular diastolic function. Left Atrium: Mildly dilated left atrium. Aortic Valve: The aortic valve is tricuspid. Normal ao rtic cuspal mobility. No significant aortic regurgitation. No aortic stenosis. 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 There is dilatation of the ascending aorta measuring 42.0 mm. Mitral Valve: Mild mitral leaflet thickening. No glenna l stenosis. IAS: No gross evidence of shunt flow seen; ho wever the possibility of a PFO cannot be completely ruled out. Right Ventricle: Normal right ventricular size. Normal ri ght ventricular systolic function. Normal right ventricular wall thickness. Pulmonary Artery: The tricuspid jet envelope definition is inadequate for estimation of RV systolic pressure. Right Atrium: Normal right atrial size. Tricuspid Valve: Normal tricuspid valve structure. Trivia l tricuspid regurgitation. No significant tricuspid stenosis. Pulmonic Valve: Normal pulmonary valve structure. Trivia l pulmonary regurgitation. No pulmonary stenosis. IVC: Dilated IVC with normal respirophasic ch anges. Pericardium: No significant pericardial effusion. No pleural effusion. Measurements Left Ventricle Aortic Valve Label Value Norm al Value Label Value Normal Value LVDd, 2D 40.7 mm LVOT Vmax 94 cm/s LVDs, 2D 26 mm AV Vmax 115 cm/s IVSd, 2D 11.5 mm LVOTd 23 mm LVPWd, 2D 9.4 mm LVOT VTI 21.1 cm FS, 2D 36.12 % LVOT PGmax 4 mmHg LVEDV, 2D 73 ml AV Vmean 84 cm/s LVESV, 2D 25 ml AV VTI 25.8 cm Cardiac Output 4.49 L/min AV PGmax 5 mmHg Cardiac Index 2.1 AV PGmean 3 mmHg L/min/m-sq ISAAK (Vmax) 3.4 cm-sq LVEDVI, 2D 34.1 ml/m2 AV Vmax, Caliper 115 cm/s LVESVI, 2D 11.7 ml/m2 ISAAK (VTI) 3.4 cm-sq Stroke Index 41.12 Obstructive Index 0.82 ml/m-sq (Vm ax) Left Atrium Obstruction Index 0.82 Label Value Norm al Value (VTI) LADs Long. 59 mm Mitral Valve LA Volume Index 36.3 ml/m-sq Label Value Normal Value Aorta MV E Vmax 54 cm/s Label Value Norm al Value MV A Vmax 59 cm/s Ao Sinus, 2D 42 mm MV E/A 0.92 Ao Asc 42 mm MV E/E' lateral 4.6 Great Vessels MV E/E' septal 7.7 Label Value Norm al Value MV Dec Time 252 ms PVein S 47 cm/s MV E' septal 7.1 cm/s PVein D 30 cm/s MV E' lateral 11.8 cm/s S/D Ratio 1.6 Tricuspid Va lve Heart Rate Label Value Normal Value Label Value Norm al Value RA Pressure 8 mmHg Heart Rate 51 bpm Pulmonic Valve Label Value Norm al Value PV Vmax 61 cm/s PV PGmax 1 mmHg Contrast Details Contrast: 3.0 ml O ptison is requested. The patient denies contraindications and gives verbal consent. Optison contrast (3 ml of activated Opti son diluted with 3 ml of saline) was used to evaluate left ventricular function to enhance end ocardial border delineation Lot #: [id number] [employer] Performing Organization Address [facility] Phone Number [facility] [place], [place] LAB ONLY-MANUAL DIFFERENTIAL (01/10/2020 4:[address] MAGISTRATE) Neutrophils Abs. (Segs 4,032 /uL [place] [facility] Seg Neut Absolute 4.0 1.8 - 8.0 K/uL [place] [address] CLINIC Lymphocytes Absolute 1.9 0.8 - 4.1 K/uL [place] [facility] Monocytes Absolute 0.6 0.0 - 1.0 K/uL [place] [address] CLINIC Eosinophils Absolute 0.4 0.0 - 0.7 K/uL [place] [facility] Metamyelocyte Absolute 0.1 0.0 - 0.1 K/uL [place] [address] CLI JUDY Neutrophils Percent 56.0 % [address] Lymphocytes Percent 27.0 % [place] [address] CLINIC Monocytes Percent 9.0 % [address] Eosinophils Percent 6.0 % [place] [address] CLINIC Metamyelocytes Percent 2.0 % [place] [facility] Platelet Morphology Normal [address] RBC Morphology Normal [address] Specimen Blood - Blood specimen (specimen) Performing Organization Address [facility] Phone Number [place] [address] [facility] [address] [place] [address] LAB ONLY-COMPLETE BLOOD COUNT WITH DIFFERENTIAL (01/10/2020 4:[address] MAGISTRATE) Pathologist Sig nature WBC 7.2 4.0 - 11.0 K/uL [address] RBC 4.69 4.40 - 5.80 M/uL [address] Hemoglobin 13.6 13.5 - 17.5 g/dL [address] Hematocrit 41.6 40.0 - 50.0 % [address] MCV 88.7 80.0 - 98.[address] MCH 29.0 25.5 - 34.[address] MCHC 32.7 31.5 - 36.5 g/dL [address] RDW-CV 14.6 11.5 - 15.5 % [address] RDW-SD 46.7 35.5 - 50.[address] Platelet Count 171 140 - 400 K/uL [address] MPV 9.2 8.5 - 12.[address] Specimen Blood - Blood specimen (specimen) Narrative Performed At A previously reported component Auto NRBCs is no longe r reported. [address] Performing Organization Address [facility] Phone Number [address] [address] PTT (01/10/2020 4:[address] MAGISTRATE) Pathologist [facility] APTT 58 (H) 24 - [address] Specimen Blood - Blood specimen (specimen) Performing Organization Address [facility] Phone Number [address] [address] TROPONIN I (01/10/2020 4:[address] MAGISTRATE) Pathologist [facility] Troponin I 0.293 (H) 0.000 - 0.028 ng/mL [address] Specimen Blood - Blood specimen (specimen) Performing Organization Address [facility] Phone Number [address] [address] BASIC METABOLIC PANEL (01/10/2020 4:[address] MAGISTRATE) Pathologist [facility] Glucose 93 70 - 100 mg/dL [address] BUN 14 6 - 22 mg/dL [address] Creatinine 0.89 0.80 - 1.[address] mg/dL BUN/Creatinine Ratio 15.7 10.0 - 25.[address] Sodium 140 135 - 145 meq/L [address] Potassium 4.0 3.5 - 5.3 meq/L [address] Chloride 107 99 - 110 meq/L [address] CO2 21 20 - 29 meq/L [address] Anion Gap with K 16 6 - 20 meq/L [address] Calcium 8.6 8.5 - 10.5 mg/dL [address] Age [address] eGFR Non- 86 >=[address] Malaysian mL/min/1.73m2 eGFR >90 >=[address] mL/min/1.73m2 Specimen Blood - Blood specimen (specimen) Performing Organization Address [facility] Phone Number [place] [address] [facility] [address] [facility] [place] [address] EKG (01/09/2020 10:[address] MAGISTRATE) Pathologist Sig nature EKG [employer] Sinus bradycardia Otherwise normal ECG No previous tracing available Ventricular Rate: 56 BPM Atrial Rate: 56 BPM P-R Interval: 144 ms QRS Duration: 90 ms Q-T Interval: 466 ms QTc Calculation(Bazett): 449 ms Calculated P [place]: 46 degrees Calculated R [place]: 37 degrees Calculated T [place]: 30 degrees Specimen Narrative Performed At This result has an attachment that is no t available. Performing Organization Address [facility] Phone Number [employer] LAB ONLY-MANUAL DIFFERENTIAL (01/09/2020 10:[address] MAGISTRATE) Neutrophils Abs. (Segs 5,533 /uL [place] [address] and Bands) CLINIC Seg Neut Absolute 5.5 1.8 - 8.0 K/uL [place] [address] CLINIC Lymphocytes Absolute 2.2 0.8 - 4.1 K/uL [place] [address] CLINIC Monocytes Absolute 0.3 0.0 - 1.0 K/uL [place] [address] CLINIC Eosinophils Absolute 0.1 0.0 - 0.7 K/uL [place] [address] CLINIC Metamyelocyte Absolute 0.2 (H) 0.0 - 0.1 K/uL [address] Myelocyte Absolute 0.1 (H) 0.0 - 0.0 K/uL [address] Neutrophils Percent 66.7 % [address] Lymphocytes Percent 26.3 % [address] Monocytes Percent 3.0 % [address] Eosinophils Percent 1.0 % [address] Metamyelocytes Percent 2.0 % [address] Myelocyte Percent 1.0 % [address] Platelet Estimate Normal [address] Platelet Morphology Normal [address] RBC Morphology Normal [address] Specimen Blood - Blood specimen (specimen) Performing Organization Address [facility] Phone Number [address] [place] [address], [place] [address] LAB ONLY-COMPLETE BLOOD COUNT WITH DIFFERENTIAL (01/09/2020 10:[address] MAGISTRATE) Pathologist Sig nature WBC 8.3 4.0 - 11.0 K/uL [address] RBC 4.88 4.40 - 5.80 M/uL [address] Hemoglobin 14.1 13.5 - 17.5 g/dL [address] Hematocrit 42.3 40.0 - 50.0 % [address] MCV 86.7 80.0 - 98.[address] MCH 28.9 25.5 - 34.[address] MCHC 33.3 31.5 - 36.5 g/dL [address] RDW-CV 14.5 11.5 - 15.5 % [address] RDW-SD 45.5 35.5 - 50.[address] Platelet Count 168 140 - 400 K/uL [address] MPV 9.2 8.5 - 12.[address] Specimen Blood - Blood specimen (specimen) Narrative Performed At A previously reported component Auto NRBCs is no longe r reported. [address] Performing Organization Address [facility] Phone Number [address] [place] [address], [place] [address] TROPONIN I (01/09/2020 10:[address] MAGISTRATE) Pathologist [facility] Troponin I 0.397 (H) 0.000 - 0.028 ng/mL [address] Specimen Blood - Blood specimen (specimen) Performing Organization Address [facility] Phone Number [place] [address] [place] [id number] PTT (01/09/2020 10:[address] MAGISTRATE) Pathologist [facility] APTT 50 (H) 24 - 35 secs [place] [address] [facility] Specimen Blood - Blood specimen (specimen) Performing Organization Address [facility] Phone Number [place] [address] [place] [address] BRAIN NATRIURETIC PEPTIDE (01/09/2020 10:[address] MAGISTRATE) Pathologist Sig [facility] BNP 86 0 - 100 pg/mL [address] Specimen Blood - Blood specimen (specimen) Performing Organization Address [facility] Phone Number [place] [address] [place] [id number] MAGNESIUM (01/09/2020 10:[address] MAGISTRATE) Pathologist Sig community [facility] Magnesium 2.3 1.8 - 2.4 mg/dL [address] Specimen Blood - Blood specimen (specimen) Performing Organization Address [facility] Phone Number [place] [address] [place] [phone] BASIC METABOLIC PANEL (01/09/2020 10:[address] MAGISTRATE) Pathologist [facility] Glucose 89 70 - 100 mg/dL [address] BUN 11 6 - 22 mg/dL [place] [address] [facility] Creatinine 0.86 0.80 - 1.[address] mg/dL BUN/Creatinine Ratio 12.8 10.0 - 25.[address] Sodium 139 135 - 145 meq/L [address] Potassium 4.0 3.5 - 5.3 meq/L [address] Chloride 107 99 - 110 meq/L [address] CO2 23 20 - 29 meq/L [address] Anion Gap with K 13 6 - 20 meq/L [address] Calcium 8.4 (L) 8.5 - 10.5 mg/dL [address] Age [address] eGFR Non- 90 >=[address] Malaysian mL/min/1.73m2 eGFR >90 >=[address] mL/min/1.73m2 Specimen Blood - Blood specimen (specimen) Performing Organization Address City/[facility]/Zipcode Phone Number [address] [place] [address] LIPID PANEL (01/09/2020 10:[address] MAGISTRATE) Pathologist Sig nature Cholesterol 217 (H) 100 - 200 mg/dL [facility] Triglyceride 189 (H) 50 - 150 mg/dL [facility] HDL 42 40 - 80 mg/dL [facility] LDL 137 (H) 0 - 129 mg/dL [facility] Specimen Blood - Blood specimen (specimen) Performing Organization Address [facility] Phone Number [facility] [address] [place] [address] GLYCATED HEMOGLOBIN (01/09/2020 10:[address] MAGISTRATE) Pathologist Blayne wolfe Hgb A1C 5.5 <5.7 % [facility] Estimated Average 111 mg/dL [facility] Y Glucose Specimen Blood - Blood specimen (specimen) Narrative Performed At ADA Interpretive Guidelines [facility] When Using HbA1c for Diagnosis Prediabetes 5.7 - 6.4% Diabetes >= 6.5% When Using HbA1c for Monitoring a Person Known to Have Diabetes, < 7% is a reasonable goal for many nonpregna nt adults, < 7.5% should be considered in children and adolescents (<19 years) with type 1 diab etes. ADA Standards of Medical Care in Diabete s - 2019 Performing Organization Address City/[facility]/Zipcode Phone Number [facility] [address] [facility] [address] [place], [place] [phone] documented in this encounter Visit Diagnoses Diagnosis Non-ST elevation [place] (NSTEMI) ([facility]) - Cuca benavides Acute myocardial infarction, unspecified site, episode of care unspecified documented in this encounter Discharge Diagnoses Not on filedocumented in this encounter Administered Medications Medication Order MAR Action Action Date Dose Rate Site acetaminophen (TYLENOL) tablet Given 01/10/2020 6:[address] MAGISTRATE 650 mg 650 mg 650 mg, Oral, Every four hours prn, Starting Tue01/09/20 at 2204, Until Discontinued, mild pain, Use FIRST for mild pain. If inadequate response in 60 minutes, may proceed to next choice option or if no other options, contact provider. Adult patients: Total dose of acetaminophen from all acetaminophen containing products should not exceed 4 grams (4000 mg) per day. Pediatric Patients 0 - 3 months: Maximum of 60 mg/kg/24 hours of acetaminophen. Pediatric Patients older than 3 months: Maximum of 75 mg/kg/24 hours of acetaminophen (Never exceeding 4 grams/day)., Given 01/10/2020 8:[address] MAGISTRATE 650 mg Given 01/09/2020 11:[address] MAGISTRATE 650 mg acetaminophen (TYLENOL) tablet 650 mg Given 01/10/2020 6:[address] MAGISTRATE 650 mg 650 mg, Oral, Every four hours prn, Starting Tue01/10/20 at 1235, Until Discontinued, mild pain, Post-Procedure (Cath), Pain Scale 1 - 3, aspirin chewable tablet 81 mg Given 01/11/2020 9:[address] MAGISTRATE 81 mg 81 mg, Oral, Daily, First dose on Tue01/11/20 at 0900, Until Discontinued, Post-Procedure (Cath) atorvaSTATin (LIPITOR) tablet 40 mg Given 01/10/2020 9:[address] MAGISTRATE 40 mg 40 mg, Oral, Bedtime, First dose on Tue01/09/20 at 2210, Until Discontinued Given 01/09/2020 11:[address] MAGISTRATE 40 mg bisacodyl (DULCOLAX) suppository 10 mg 10 mg, Rectal, One time a day prn, Starting Tue at 2204, Until Discontinued, constipation, Use SECOND for constipatio n. If patient cannot take oral medications, use first for constipation., busPIRone (BUSPAR) tablet 5 mg Given 01/11/2020 9:[address] MAGISTRATE 5 mg 5 mg, Oral, DAILY, First dose on Tue01/10/20 at 0900, Until Discontinued Given 01/10/2020 8:[address] MAGISTRATE 5 mg citalopram (celeXA) tablet 40 mg Given 01/11/2020 9:[address] MAGISTRATE 40 mg 40 mg, Oral, DAILY, First dose on Tue01/10/20 at 0900, Until Discontinued Given 01/10/2020 8:[address] MAGISTRATE 40 mg docusate sodium (THEREVAC-SB MINI;ENEMEE Z MINI) 283 MG enema 1 enema 1 enema, Rectal, One time a day prn, Starting 12/22 at 2204, Until Discontinued, constipation, Use THIRD for constipation - if no BM 8 hours after dulcolax suppository. If patient cannot take oral medi cations, use second for constipation., hydrALAZINE (APRESOLINE) injection solut ion 10 mg 10 mg, IV, Every six hours prn, Starting Doris 01/10/20 at 1203, Until Discontinued, specified parameter, to keep SBP less th an 150 mmHg, 0.5 mL, Repeat in 20 minutes if needed. If not successful after two d oses, contact the interventional cardiology team., melatonin tablet 3 mg Given 01/09/2020 11:[address] MAGISTRATE 3 mg 3 mg, Oral, Bedtime prn, Starting Tue01/09/20 at 2204, Until Discontinued, other (Specify), insomnia, Use FIRST for insomnia. If inadequate response in 60 minutes, may proceed to next choice option or, if no other options, contact provider., metoclopramide (REGLAN) inj soln 5 mg 5 mg, IV, Every eight hours prn, Startin g Tue01/09/20 at 2204, Until Discontinued, nausea, vomiting, 1 mL, Use THIRD for na usea / vomiting. If ineffective after 30 minutes and ondansetron oral and IV given, call provid er for alternative. If preference is to further dilute for IV administration: First draw up patient-specific dose, then dilute to 10 mL with 0.9% sodium chloride., metoprolol succinate (TOPROL XL) SR tablet Given 01/10/2020 9:[address] MAGISTRATE 25 mg (24 hr) 25 mg 25 mg, Oral, Daily, First dose on Tue01/09/20 at 2210, Until Discontinued, Tablet may be broken in half, but should not be crushed or chewed. Hold for SBP less than 100 Hold for HR less than 55, Given 01/09/2020 11:[address] MAGISTRATE 25 mg nitroglycerin (NITROSTAT) sublingual tab let 0.4 mg 0.4 mg, Sublingual, Every five minutes p rn, Starting Doris 01/10/20 at 1235, Until Discontinued, chest pain, Post-Procedure (Cath), At onset of chest pain, dissolve one tablet under tongue. May repeat ever y 5 minutes for 3 doses. Do not crush or chew., ondansetron (ZOFRAN ODT) dispersible tab let 4 mg 4 mg, Oral, Four times a day prn, Starting Tue 0 at 2204, Until Discontinued, nausea, vomiting, Use FIRS T for nausea / vomiting. If ineffective after 30 minutes use ondansetron IV, ondansetron (ZOFRAN) injection solution 4 mg 4 mg, IV, Four times a day prn, Starting Tue01/09/20 at 2204, Until Discontinued, nausea, vomiting, 2 mL, Use SECOND for n ausea / vomiting. If ineffective after 30 minutes and ondansetron oral given, use metoclopramide IV If preference is to further dilute for IV administration: First draw up pa tient-specific dose, then dilute to 10 mL with 0.9% sodium chloride., senna-docusate sodium (SENOKOT-S;PERICOL KEV) tablet 2 tablet 2 tablet, Oral, Two times a day prn, Starting 12/22 at 2204, Until Discontinued, constipation, Use FIRST fo r constipation unless patient cannot take oral medications., sodium chloride 0.9% flush (adult) 10 mL Given 01/11/2020 9:[address] MAGISTRATE 10 mL 10 mL, IV, Two times a day and prn, First dose on Tue01/09/20 at 2205, Until Discontinued, 10 mL, Flush IV line as scheduled and as often as necessary before and after meds., Given 01/10/2020 9:[address] MAGISTRATE 10 mL Given 01/10/2020 8:[address] MAGISTRATE 10 mL tamsulosin (FLOMAX) capsule 0.4 mg Given 01/11/2020 9:[address] MAGISTRATE 0.4 mg 0.4 mg, Oral, DAILY, First dose on Tue01/10/20 at 0900, Until Discontinued, Swallow cap whole. Do not crush, chew or open., Given 01/10/2020 8:[address] MAGISTRATE 0.4 mg ticagrelor (BRILINTA) tablet 90 mg Given 01/11/2020 9:[address] MAGISTRATE 90 mg 90 mg, Oral, Two times a day, 730 doses, First dose on Doris 01/10/20 at 2100, Last dose on Tue01/09/21 at 0900, Post-Procedure (Cath), If medication is crushed, must be mixed with water for administration., Given 01/10/2020 9:[address] MAGISTRATE 90 mg Medication Order MAR Action Action Date Dose Rate Site aspirin chewable tablet 243 mg Given 01/10/2020 10:[address] MAGISTRATE 243 mg 243 mg, Oral, One time, 1 dose, Doris 01/10/20 at 0955, Prep Orders (Cath) if inpatient - floor RN to release, Patient to receive 325 mg aspirin prior to procedure If patient currently taking aspirin at home and has taken their dose today prior to procedure: administer aspirin dosage so that total amount prior to procedure equals 325 mg, aspirin chewable tablet 81 mg Given 01/10/2020 8:[address] MAGISTRATE 81 mg 81 mg, Oral, DAILY, First dose on Doris 01/10/20 at 0900, Until Discontinued fentaNYL 100 mcg/2 mL preservative free Given 01/10/2020 11:[address] MAGISTRATE 50 mcg injection solution 25-300 mcg 25-300 mcg, IV, PRN per parameter, Starting Doris 01/10/20 at 0919, Until Doris 01/10/20 at 1215, other (Specify), sedation for cardiac catheterization, 6 mL, Pre-Procedure (Cath), procedural area to release, For sedation under direction provider privileged to perform sedation. Do not give on the floor., hEParin (50 units/mL) in Rate Verify 01/10/2020 7:44 AM 19 Units/ kg/hr 37.5 mL/hr D5W premixed IV solution NIGHT COURT MAGISTRATE (STANDARD-weight based) 0-50 Units/kg/hr 98.8 kg (0-98.8 mL/hr), IV, at 0-98.8 mL/hr, Titrate, Starting 01/09/20 at 2310, Until Doris 01/10/20 at 1206, 500 mL, Start initial infusion at 15 units/kg/hr. Notify physician if initial infusion exceeds 1,500 units/hr. Adjust heparin infusion based on sliding scale: * aPTT less than 60 sec ------ Give 70 units/kg IV bolus and add 4 units/kg/hr to current rate * aPTT 60-69.9 sec Give 35 units/kg IV bolus and add 2 units/kg/hr to current rate * aPTT 70-120.9 sec No change (therapeutic) * aPTT 121-135.9 sec Subtract 2 units/kg/hr from current rate * aPTT 136-149.9 sec --------- Hold heparin for 1 hour and subtract 3 units/kg/hr from current rate * aPTT 150 sec or greater - Redraw STAT aPTT and hold heparin. Draw hourly aPTT using routine specified time until less than 150 sec, then restart heparin infusion at 3 units/kg/hr less than the previous rate, give NO BOLUS and resume every 6 hour aPTT. AFTER PROCEDURE: When restarting infusion after it's been held for a procedure, restart infusion at "starting" dose of 15 units/kg/hr and follow titration orders. IF infusion was running at less than 15 units/kg/hr prior to procedure, restart at that rate and follow titration orders., New Bag 01/10/2020 5:[address] MAGISTRATE 19 Units/kg/hr 37.5 mL/hr New Bag 01/09/2020 11:[address] MAGISTRATE 15 Units/kg/hr 29.6 mL/hr heparin (porcine) (5000 units/1 mL) IV Given 0 5:[address] MAGISTRATE 6,900 Units dose 6,900 Units 6,900 Units (rounded from 6,916 Units = 70 Units/kg 98.8 kg), IV, PRN per parameter, Starting 01/09/20 at 2205, Until Doris 01/10/20 at 1206, other (Specify), * aPTT less than 60 seconds - Give 70 units/kg IV bolus and add 4 units/kg/hr to current rate of infusion, 2 mL, Supplemental bolus doses based on aPTT: * aPTT less than 60 seconds - Give 70 units/kg IV bolus and add 4 units/kg/hr to current rate of infusion. * aPTT 60 to 69.9 seconds - Give 35 units/kg IV bolus and add 2 units/kg/hr to current rate of infusion. Round to the nearest 100 units up to a maximum bolus of heparin 7500 units , heparin (porcine) injection solution Given 01/10/2020 11:[address] 2,000 Units 0-12,000 Units 0-12,000 Units, IV, Administer in Cardiac Straw Hat Brim Raiser Operator, 1 dose, Doris 01/10/20 at 1155, 12 mL, Under the direction of the provider in CCL. Do not give on the floor., influenza vaccine split quadrivalent Given 01/10/2020 8:[address] 0.5 mL Right Arm IM injection 0.5 mL 0.5 mL, Intramuscular, Prior to discharge, 1 dose, Starting Doris 01/10/20 at 0316, Until Doris 01/10/20 at 0833, 0.5 mL, Message pharmacy when the dose is needed if not available on unit, iohexol (OMNIPAQUE) 350 mg/mL solution 0-300 Given 12:[address] MAGISTRATE 120 mL mL 0-300 mL, Intra-arterial, One time, 1 dose, Doris 01/10/20 at 0955, 300 mL, Prep Orders (Cath) if inpatient - floor RN to release, Do NOT administer on the floor. Radiology to administer for CCL Procedure ONLY., lidocaine PF (XYLOCAINE-MPF) 1 % preservative Given 11:[address] MAGISTRATE 3 mL free injection solution 0-40 mL 0-40 mL, Subcutaneous, Administer in Cardiac Straw Hat Brim Raiser Operator, 1 dose, Doris 01/10/20 at 1130, 40 mL, Given by provider in CCL. Do not give on the floor., midazolam (VERSED) injection solution 0.5-10 Given 0 11:[address] MAGISTRATE 2 mg mg 0.5-10 mg, IV, PRN per parameter, Starting Doris 01/10/20 at 0919, Until [place]is 01/10/20 at 1215, other (Specify), sedation for cardiac catheterization, 10 mL, Pre-Procedure (Cath), procedural area to release, For sedation under direction provider privileged to perform sedation. Do not give on the floor., sodium chloride 0.9% IV solution New Bag 01/10/2020 10:[address] MAGISTRATE 75 mL/hr IV, at 75 mL/hr, Continuous, Starting Doris 01/10/20 at 0920, Until Doris 01/10/20 at 1215, 1,000 mL, Prep Orders (Cath) if inpatient - floor RN to release, If this is a TILT procedure, start IV fluid at TKO (10 mL/hr) before transfer to the dock or pier laborer, sodium chloride 0.9% IV solution New Bag 01/10/2020 1:[address] MAGISTRATE 150 mL/hr IV, at 150 mL/hr, Continuous, Starting Doris 01/10/20 at 1305, Until Doris 01/10/20 at 1504, 1,000 mL, Post-Procedure (Cath) ticagrelor (BRILINTA) tablet 0-180 mg Given 01/10/2020 12:[address] MAGISTRATE 180 mg 0-180 mg, Oral, Administer in Cardiac Straw Hat Brim Raiser Operator, 1 dose, Doris 01/10/20 at 1155, Under the direction of the provider in CCL. Do not give on the floor., verapamil-hEParin in normal saline (radial Given 01/10/2020 11:[address] MAGISTRATE cocktail) Intra-arterial, Now, 1 dose, Doris 01/10/20 at 0920, 10 mL, Prep Orders (Cath) if inpatient - floor RN to release, Do NOT administer on the floor. Procedural/CCL ONLY product. Provider must be present., documented in this encounter
== END 2020-01-09 20:20 ==
LOC: LL.ED 08:56
DX: I21.4 Non-ST elevation (NSTEMI) myocardial infarction (principal); M89.49 Other hypertrophic osteoarthropathy, multiple sites; J43.1 Panlobular emphysema; K21.9 Gastro-esophageal reflux disease without esophagitis; E78.5 Hyperlipidemia, unspecified; E83.42 Hypomagnesemia; F41.8 Other specified anxiety disorders; R74.02 Elevation of levels of lactic acid dehydrogenase [LDH]; R03.0 Elevated blood-pressure reading, without diagnosis of hypertension; N40.0 Benign prostatic hyperplasia without lower urinary tract symptoms; F41.9 Anxiety disorder, unspecified; F32.9 Major depressive disorder, single episode, unspecified; E66.9 Obesity, unspecified
CPT/HCPCS: 36415; 71045; 80053; 82550; 82553; 83605; 83735; 83880; 84443; 84484; 84550; 85025; 85379; 85610; 85730; 93005; 93010; 96361; 96365; 96366; 96368; 96375; 96376; 99285; 99285-25; A9270-GY; J1644; J3475; J3490; J7120

== ENCOUNTER 2022-01-07 13:07 | Emergency (ER) | payer MEDICARE, OTHER | END 2022-01-07 14:10 | disposition home or self-care (01) | LOC: LL.ED 13:07 | DX: F32.A Depression, unspecified (principal); Z79.899 Other long term (current) drug therapy | CPT/HCPCS: 99283 ==

== ENCOUNTER 2022-06-17 07:55 | Day surgery (SDC) | payer MEDICARE, OTHER ==
[2022-06-17] MEDS ORDERED: Sodium Chloride 0.9% 10 ML Syringe FLUSH PRN (08:00)
[2022-06-17] MEDS ORDERED: Lactated Ringers 1,000 ML IV SCH (08:00)
[2022-06-17] MEDS ORDERED: Propofol 200 MG/20 ML SDV ONE (08:31)
[2022-06-17] MEDS ORDERED: Midazolam 1 MG/ML 2 ML SDV ONE (08:31)
[2022-06-17] MEDS ORDERED: Lidocaine 2% 5 ML SDV ONE (09:03)
[2022-06-17] MEDS ORDERED: Glycopyrrolate 0.2 MG/ML SDV ONE (09:03)
[2022-06-17 10:01] VITALS: BP 119/76; PULSE 63
== END 2022-06-17 10:45 | disposition home or self-care (01) ==
LOC: LL.SDS 07:55
PROVIDERS: ATTEND Surgery
DX: Z12.11 Encounter for screening for malignant neoplasm of colon (principal); K63.5 Polyp of colon; K29.50 Unspecified chronic gastritis without bleeding; K21.00 Gastro-esophageal reflux disease with esophagitis, without bleeding; K22.10 Ulcer of esophagus without bleeding; K25.9 Gastric ulcer, unspecified as acute or chronic, without hemorrhage or perforation; K57.30 Diverticulosis of large intestine without perforation or abscess without bleeding; F41.9 Anxiety disorder, unspecified; M10.9 Gout, unspecified; F33.1 Major depressive disorder, recurrent, moderate; F60.89 Other specific personality disorders; I25.10 Atherosclerotic heart disease of native coronary artery without angina pectoris; E78.5 Hyperlipidemia, unspecified; I25.2 Old myocardial infarction; K22.70 Barrett's esophagus without dysplasia; N40.1 Benign prostatic hyperplasia with lower urinary tract symptoms; N13.8 Other obstructive and reflux uropathy; Z86.010 Personal history of colon polyps; Z80.0 Family history of malignant neoplasm of digestive organs
CPT/HCPCS: 00813; J2250; J2704; J3490; J7120